=== PATIENT | female | born 1955 | race Caucasian/White ===

== ENCOUNTER 2016-09-16 15:17 | Observation (INO) | payer BC ==
[~2016-09-16] VITALS: Ht 162.6 cm; Wt 102.9 kg
[2016-09-16] MEDS ORDERED: NF454 PO (15:45)
[2016-09-16] MEDS ORDERED: CLB/200 PO (15:45)
[2016-09-16] MEDS ORDERED: HYDR12.55 PO (15:45)
[2016-09-16] MEDS ORDERED: INSDGI SC (15:45)
[2016-09-16] MEDS ORDERED: EZET10TA63 PO (15:45)
[2016-09-16] MEDS ORDERED: SIMV40TA2 PO (15:45)
[2016-09-16] MEDS ORDERED: LEVO25TA5 PO (15:45)
[2016-09-16] MEDS ORDERED: RABE20TA5 PO (15:45)
[2016-09-16] MEDS ORDERED: PANT40TA PO (15:45)
[2016-09-16] MEDS ORDERED: GLIP2.5T5 PO (15:45)
[2016-09-16] MEDS ORDERED: DICY10CA55 PO (15:45)
[2016-09-16] MEDS ORDERED: VNTHFA/IN INH (15:45)
[2016-09-16] MEDS ORDERED: FLUO20CA34 PO (15:45)
[2016-09-16] MEDS ORDERED: SODIUM CHLORIDE 0.9% 1000ML 1,000 ML IV STA (16:04)
[2016-09-16 16:40] LABS: BASO % 0.1 %; BASO ABS # 0.01 K/uL (0-0.2); COMPLETE YES; EOS % 1.1 %; HEMATOCRIT 35.6 % (37-47); IG% 0.3 %; LYMPH % 24.6 %; LYMPH ABS # 1.84 K/uL (1.2-3.4); MEAN CORPUSCULAR HEMOGLOBIN 27.2 pg (25-34); MEAN CORPUSCULAR HGB CONC 33.1 g/dl (32-36); MEAN PLATELET VOLUME 8.4 fL (7.4-10.4); MONO % 4.3 %; NEUT % 69.6 %; PLATELET COUNT 293 K/uL (130-400); RED BLOOD COUNT 4.34 M/uL (4.2-5.4); WHITE BLOOD COUNT 7.48 K/uL (4.8-10.8)
[2016-09-16 16:51] LABS: PARTIAL THROMBOPLASTIN RATIO 1.1
[2016-09-16 16:56] LABS: ALT/SGPT 43 U/L (12-78); AST/SGOT 21 U/L (15-37); BLOOD UREA NITROGEN 14 mg/dl (7-18); BUN/CREATININE RATIO 17.6 (10-20); CALCIUM 8.6 mg/dl (8.5-10.1); CARBON DIOXIDE 28 mmol/L (21-32); CHLORIDE 102 mmol/L (98-107); CREATININE 0.78 mg/dl (0.60-1.20); GLUCOSE 120 mg/dl (70-99); MAGNESIUM 1.8 mg/dl (1.8-2.4); POTASSIUM 3.1 mmol/L (3.5-5.1); SODIUM 140 mmol/L (136-145)
--- NOTE | 2016-09-16 17:02 | DIAGNOSTIC IMAGING REPORT ---
SINGLE VIEW CHEST CLINICAL HISTORY: Generalized weakness. Dyspnea and dizziness. FINDINGS: An AP, portable, upright chest radiograph is obtained. No prior studies are available for comparison at the time of dictation. The examination is degraded by portable technique, apical lordotic positioning, and patient rotation. The cardiomediastinal silhouette is unremarkable. Nonspecific interstitial thickening is identified. No airspace consolidation, large pleural effusion, or pneumothorax is seen. The skeletal structures are osteopenic. The bony thorax is grossly intact. Degenerative change is noted throughout the thoracic spine. IMPRESSION: No acute cardiopulmonary abnormality. Electronically signed by: Dewey Harris M.D. 09/16/2016 5:00 PM Dictated Date/Time: 09/16/2016 5:00 PM
[2016-09-16 17:07] LABS: ALKALINE PHOSPHATASE 97 U/L (45-117); CKMB/CK RATIO 1.3 (0-3.0)
[2016-09-16 17:46] LABS: URINE APPEARANCE CLOUDY (CLEAR); URINE BILIRUBIN NEG (NEG); URINE COLOR YELLOW; URINE EPITHELIAL CELL AUTO 20-30 /lpf (0-5); URINE NITRITE NEG (NEG); URINE PH 5.5 (4.5-7.5); URINE SPECIFIC GRAVITY 1.009 (1.000-1.030); UROBILINOGEN NEG (NEG)
[2016-09-16 17:54] LABS: MANUAL MICROSCOPIC REQUIRED? NO; REVIEW REQ? NO
[2016-09-16] MEDS ORDERED: MoRPHine SULFATE 2 MG/ML CARP IV PRN (18:45)
[2016-09-16] MEDS ORDERED: ACETAMINOPHEN 325 MG TAB PO PRN (18:45)
[2016-09-16] MEDS ORDERED: ONDANSETRON INJ 2 MG/ML 2 ML VIAL IV PRN (18:45)
[2016-09-16] MEDS ORDERED: NITROGLYCERIN 0.4 MG SL PER TAB CHARGE SL PRN (18:45)
[2016-09-16] MEDS ORDERED: POLYETHYLENE (MIRALAX) 17 GM PACK PO PRN (18:45)
[2016-09-16] MEDS ORDERED: CELE100C PO (18:52)
[2016-09-16] MEDS ORDERED: GLUCOSE 10 TABS/TUBE PO PRN (19:00)
[2016-09-16] MEDS ORDERED: DEXTROSE 50% 50 ML SYR IV PRN (19:00)
[2016-09-16] MEDS ORDERED: GLUCOSE 40% GEL 15 GM TUBE PO PRN (19:00)
[2016-09-16] MEDS ORDERED: ALBUTEROL HFA 8 GM INHALER INH PRN (19:00)
[2016-09-16] MEDS ORDERED: GLUCAGON FOR INJ 1 MG VIAL SQ PRN (19:00)
[2016-09-16] MEDS ORDERED: PHARMACY GLYCEMIC MGMT CONSULT SCH (19:11)
--- NOTE | 2016-09-16 19:12 | History and Physical ---
History & Physical Date & Time of Service: Sep 16, 2016 at 18:55 Chief Complaint: Sob, Dizziness, Referred From [facility] Primary Care Physician: No Doctor, Assigned History of Present Illness Source: patient, family, hospital records 61 yo F with h/o breast cancer s/p XRT in 2009 (no chemo) who is a lifelong smoker and who has a h/o nonobstructive heart disease on prior cath several years ago presents with 6 months of progressive worsening of her shortness of breath. She reports recently having been treated for CAP with a Zpak and some symptom control therapy such as Mucinex which helped, but states although she felt somewhat better, she did not feel as though she full recovered. She did go back to be seen and had a CXR that showed an improving PNA, no additional treatment was rendered at that time, and she improved. However, in the last few days her SOB has been worsening. She went to walk a 5K this morning with her family, which is something she usually has no issue with and couldn't make it to the starting line. She is noticeably very short of breath walking up her steps at home, moreso than usual. She denies cough, fevers, chills. She is a well-controlled diabetic who is on long-term insulin. She does report having active chest pain episodes that began about 2 months ago. They seemed to be provoked by stressors that she was going through at the time, not provoked by exercise. No palliative factors, but states the pain felt "like someone wiggling their fingers inside her chest" and would last for an hour at a time a few times a day. She also said that during her CP which did not radiate and was substernal, she would have nausea, lightheadedness, nausea, and tingling sensation in her fingers. After the treatment for PNA three weeks ago, those chest pains have not returned. She otherwise denies any ROS. She does also have PASCUAL and reports compliance with CPAP. No swelling or weight gain and she is euvolemic on exam. Past Medical/Surgical History Medical Problems: (1) Diabetes mellitus Status: Chronic (2) GERD (gastroesophageal reflux disease) Status: Chronic (3) HX: breast cancer Status: Resolved (4) Hypertension Status: Chronic Surgical Problems: (1) History of carpal tunnel surgery of left wrist Status: Chronic (2) History of hysterectomy Status: Resolved (3) History of right knee surgery Status: Chronic (4) Hx of cholecystectomy Status: Resolved (5) S/P SACHI-BSO Status: Chronic (6) Status post left breast lumpectomy Status: Chronic Family History Cancer Diabetes mellitus Heart disease Hypertension Kidney disease Kidney stones Social History Smoking Status: Never Smoker Smokeless Tobacco Use: No Alcohol Use: socially Drug Use: none Marital Status: Housing status: lives with significant other Occupational Status: employed Immunizations History of Influenza Vaccine: Unknown History of Tetanus Vaccine?: Unknown History of Pneumococcal: Unknown History of Hepatitis B Vaccine: Unknown Multi-Drug Resistant Organisms History of MDRO: No Allergies Coded Allergies: Indomethacin (Verified Adverse Reaction, Intermediate, "MAKES ME HIGH", 09/16/16) I FEEL LIKE I'M LEVITATING OFF THE COUCH. Aspirin (Verified Adverse Reaction, Unknown, STOMACH UPSET/SENSITIVITY, 09/16/16) Penicillins (Verified Adverse Reaction, Unknown, STOMACH UPSET/SENSITIVITY , 09/16/16) Home Medications Scheduled Celecoxib (Celebrex), 100 MG PO DAILY Dicyclomine Hcl (Bentyl), 5 MG PO BID Ezetimibe (Zetia), 10 MG PO DAILY Fluoxetine Hcl (Prozac), 60 MG PO DAILY Glipizide-Metformin Hcl (Glipizide/Metformin Hcl), 1 TAB PO BID Hydrochlorothiazide (Hydrochlorothiazide), 1 TAB PO DAILY Insulin Glargine (Lantus), 45 UNITS SC HS Levothyroxine Sodium (Levothyroxine Sodium), 1 TAB PO DAILY Pantoprazole (Protonix), 40 MG PO DAILY Simvastatin (Zocor), 40 MG PO QPM Verapamil Hcl (Calan Sr Ext Rel), 240 MG PO BID Scheduled PRN Albuterol Hfa (Ventolin Hfa), 2 PUFFS INH UD PRN for SOB/Wheezing Review of Systems Ten systems were reviewed and negative except as indicated in HPI. Physical Exam Vital Signs Date Time Temp Pulse Resp B/P (MAP) Pulse Ox O2 Delivery O2 Flow Rate FiO2 09/16/16 16:38 79 09/16/16 16:17 98 Room Air 09/16/16 16:17 98 Room Air 09/16/16 15:34 Room Air 09/16/16 15:23 36.8 85 18 184/94 95 Room Air GEN: obese, in no acute distress, alert and appropriate, no conversational dyspnea off oxygen. HEENT: NC/AT, PERRL, normal sclerae/conjunctivae, pharynx non-acute, MMM, no LAD CARDIO: reg rate, S1/2 heard without m/g/r, no chest wall TTP appreciated. LUNGS: CTA bilaterally, no crackles, rales or wheezes, good diaphragmatic excursion ABD: soft, non-tender, non-distended, no rebound or guarding, +BS EXTREMITY: RP and DP palpable 2+ bilat, no LE swelling or edema, extremities are warm and well-perfused NEURO: CN 2-12 grossly intact, mentating normally MUSC: 5/5 strength throughout, no focal deficits SKIN: warm and dry Diagnostics Laboratory Results Results Past 24 Hours Test 09/16/16 16:25 09/16/16 16:33 09/16/16 17:30 Range/Units White Blood Count 7.48 4.8-10.8 K/uL Red Blood Count 4.34 4.2-5.4 M/uL Hemoglobin 11.8 12.0-16.0 g/dL Hematocrit 35.6 37-47 % Mean Corpuscular Volume 82.0 80-100 fL Mean Corpuscular Hemoglobin 27.2 25-34 pg Mean Corpuscular Hemoglobin Concent 33.1 32-36 g/dl Platelet Count 293 130-400 K/uL Mean Platelet Volume 8.4 7.4-10.4 fL Neutrophils (%) (Auto) 69.6 % Lymphocytes (%) (Auto) 24.6 % Monocytes (%) (Auto) 4.3 % Eosinophils (%) (Auto) 1.1 % Basophils (%) (Auto) 0.1 % Neutrophils # (Auto) 5.21 1.4-6.5 K/uL Lymphocytes # (Auto) 1.84 1.2-3.4 K/uL Monocytes # (Auto) 0.32 0.11-0.59 K/uL Eosinophils # (Auto) 0.08 0-0.5 K/uL Basophils # (Auto) 0.01 0-0.2 K/uL RDW Standard Deviation 43.0 36.4-46.3 fL RDW Coefficient of Variation 14.4 11.5-14.5 % Immature Granulocyte % (Auto) 0.3 % Immature Granulocyte # (Auto) 0.02 0.00-0.02 K/uL Prothrombin Time 11.0 9.0-12.0 SECONDS Prothromb Time International Ratio 1.0 0.9-1.1 Activated Partial Thromboplast Time 27.5 21.0-31.0 SECONDS Partial Thromboplastin Ratio 1.1 Sodium Level 140 136-145 mmol/L Potassium Level 3.1 3.5-5.1 mmol/L Chloride Level 102 98-107 mmol/L Carbon Dioxide Level 28 21-32 mmol/L Anion Gap 10.0 3-11 mmol/L Blood Urea Nitrogen 14 7-18 mg/dl Creatinine 0.78 0.60-1.20 mg/dl Est Creatinine Clear Calc Drug Dose 86.8 ml/min Estimated GFR () 93.8 Estimated GFR (Non- 80.9 BUN/Creatinine Ratio 17.6 10-20 Random Glucose 120 70-99 mg/dl Calcium Level 8.6 8.5-10.1 mg/dl Magnesium Level 1.8 1.8-2.4 mg/dl Total Bilirubin 0.3 0.2-1 mg/dl Direct Bilirubin 0.1 0-0.2 mg/dl Aspartate Amino Transf (AST/SGOT) 21 15-37 U/L Alanine Aminotransferase (ALT/SGPT) 43 12-78 U/L Alkaline Phosphatase 97 45-117 U/L Total Creatine Kinase 92 26-192 U/L Creatine Kinase MB 1.2 0.5-3.6 ng/ml Creatine Kinase MB Ratio 1.3 0-3.0 Troponin I < 0.015 0-0.045 ng/ml Pro-B-Type Natriuretic Peptide 31 0-900 pg/ml Total Protein 6.6 6.4-8.2 gm/dl Albumin 3.5 3.4-5.0 gm/dl Thyroid Stimulating Hormone (TSH) 1.360 0.300-4.500 uIu/ml Bedside D-Dimer 374 0-450 ng/mlFEU Urine Color YELLOW Urine Appearance CLOUDY CLEAR Urine pH 5.5 4.5-7.5 Urine Specific [place] 1.009 1.000-1.030 Urine Protein NEG NEG Urine Glucose (UA) NEG NEG Urine Ketones NEG NEG Urine Occult Blood NEG NEG Urine Nitrite NEG NEG Urine Bilirubin NEG NEG Urine Urobilinogen NEG NEG Urine Leukocyte Esterase LARGE NEG Urine WBC (Auto) >30 0-5 /hpf Urine RBC (Auto) 0-4 0-4 /hpf Urine Hyaline Casts (Auto) 1-5 0-5 /lpf Urine Epithelial Cells (Auto) 20-30 0-5 /lpf Urine Bacteria (Auto) NEG NEG Diagnostic Radiology SINGLE VIEW CHEST CLINICAL HISTORY: Generalized weakness. Dyspnea and dizziness. FINDINGS: An AP, portable, upright chest radiograph is obtained. No prior studies are available for comparison at the time of dictation. The examination is degraded by portable technique, apical lordotic positioning, and patient rotation. The cardiomediastinal silhouette is unremarkable. Nonspecific interstitial thickening is identified. No airspace consolidation, large pleural effusion, or pneumothorax is seen. The skeletal structures are osteopenic. The bony thorax is grossly intact. Degenerative change is noted throughout the thoracic spine. IMPRESSION: No acute cardiopulmonary abnormality. EKG SR 79 with TWI V1-3 Impression Assessment and Plan 61 yo diabetic female with worsening RIGGS that became more severe and limiting in the last couple of days. 1. RIGGS- etiologies include but not limited to CAD/ACS, constrictive pericarditis or radiation pneumonitis after XRT therapy, pericardial effusion, deconditioning, pulmonary disease, impaired oxygen transport-toxins?, pulmonary HTN as a sequelae of PASCUAL, structural heart disease. Her CXR was clear, EKG revealed TWI in anterior leads, which was different from a prior EKG, and trop was negative. D-dimer was also negative. Will rule out ACS, give statin and ASA was already given today at outpatient facility. Will not anticoagulate as TRS is <3. Will monitor on telemetry and consult cardiology. TTE in am. If workup is negative at that point, would consider HRCT or pulm consult. Cont CPAP while hospitalized. 2. PASCUAL-compliant with CPAP 3. HTN-controlled, cont current therapy. 4. Obesity 5. Depression-stable, cont Prozac 6. DMII-reported low Y3E-snff check in am. ISS with carb coverage and Lantus ordered in hospital; glycemic pharm consult placed. 7. h/o breast cancer s/p XRT and lumpectomy; also took Tamoxifen or Arimidex but currently in remission. 8. 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 Y/N: Yes Risk Level: Moderate Given or contraindicated: Enoxaparin (Lovenox)SQ
[2016-09-16 19:48] VITALS: BP 137/54; PULSE 82; TEMP 37; O2SAT 96; Ht 162.6 cm; Wt 102.9 kg
--- NOTE | 2016-09-16 19:49 | EMERGENCY ROOM VISIT NOTE ---
History Report prepared by Jose: Suzy Lea Under the Supervision of: Dr. Dennis Hooper M.D. First contact with patient: 16:03 Chief Complaint: RESPIRATORY PROBLEMS Stated Complaint: SOB, DIZZINESS, REFERRED FROM [facility] Nursing Triage Summary: Patient reports having a recent diagnosis of pneumonia. Patient went to [facility] this date for re-evaluation of her cough which is not associated with exertional SOB. Patient given duoneb? with some relief and EKG completed. Provider at [facility] concerned over EKG changes. Patient denies any chest pain, fever, chills, productive cough, or syncope. History of Present Illness The patient is a 61 year old female who presents to the Emergency Room with complaints of constant respiratory problems for the past 3 weeks. She was recently diagnosed with pneumonia. She saw her PCP for this and took antibiotics. She states that she is still experiencing some symptoms. She gets short of breath with exertion and states that she was short of breath just walking short distances this morning. The patient notes that when she gets short of breath she also becomes nauseated and "clammy." She was feeling dizzy and lightheaded today. She was supposed to walk a 4K today, but was unable to due to her symptoms. She went to [facility] and had an ECG. The PA-C that evaluated her was concerned about a prolonged QT and sent the patient to the ED for further evaluation. While at [facility] she received a DuoNeb treatment that helped alleviate her symptoms for a short time. They also get her 6 baby aspirin. The patient reports chest pain about a month ago that she was never evaluated for. She thought that her chest pain was related to anxiety and states that her pain has resolved. She also notes intermittent pains in the backs of her legs bilaterally over the last 3 weeks. She took a trip to [place] last week, but denies any other recent prolonged travel. Pt denies LOC , headache, fevers, chills, diaphoresis, visual changes, neck pain, tearing pain radiating to the back, personal history or family history of aneurysm or pulmonary embolism, uncontrolled hypertension, leg swelling, coagulation abnormalities, recent surgery or immobilization, vomiting, abdominal pain, melena, hematochezia, urinary symptoms, numbness, weakness, lymphadenopathy, rash, or other complaints. Source of History: patient Onset: 3 weeks ago Position: chest (respiratory) Timing: constant Modifying Factors (Worsening): exertion Modifying Factors (Relieving): other (DuoNeb) Associated Symptoms: + SOB, + nausea Note: Pt notes lightheadedness and dizziness. Review of Systems See HPI for pertinent positives and negatives. A total of ten systems were reviewed and were otherwise negative. Past Medical & Surgical Medical Problems: (1) Diabetes mellitus (2) Exertional dyspnea (3) GERD (gastroesophageal reflux disease) (4) HX: breast cancer (5) Hypertension (6) Shortness of breath Surgical Problems: (1) History of hysterectomy (2) Hx of cholecystectomy Family History Cancer Diabetes mellitus Heart disease Hypertension Kidney disease Kidney stones Social History Smoking Status: Never Smoker Smokeless Tobacco Use: No Alcohol Use: occasionally Occupation Status: employed Current/Historical Medications Scheduled Celecoxib (Celebrex), 100 MG PO DAILY Dicyclomine Hcl (Bentyl), 5 MG PO BID Ezetimibe (Zetia), 10 MG PO DAILY Fluoxetine Hcl (Prozac), 60 MG PO DAILY Glipizide-Metformin Hcl (Glipizide/Metformin Hcl), 1 TAB PO BID Hydrochlorothiazide (Hydrochlorothiazide), 1 TAB PO DAILY Insulin Glargine (Lantus), 45 UNITS SC HS Levothyroxine Sodium (Levothyroxine Sodium), 1 TAB PO DAILY Pantoprazole (Protonix), 40 MG PO DAILY Simvastatin (Zocor), 40 MG PO QPM Verapamil Hcl (Calan Sr Ext Rel), 240 MG PO BID Scheduled PRN Albuterol Hfa (Ventolin Hfa), 2 PUFFS INH UD PRN for SOB/Wheezing Allergies Coded Allergies: Indomethacin (Verified Adverse Reaction, Intermediate, "MAKES ME HIGH", 09/16/16) I FEEL LIKE I'M LEVITATING OFF THE COUCH. Aspirin (Verified Adverse Reaction, Unknown, STOMACH UPSET/SENSITIVITY, 09/16/16) Penicillins (Verified Adverse Reaction, Unknown, STOMACH UPSET/SENSITIVITY , 09/16/16) Physical Exam Vital Signs Date Time Temp Pulse Resp B/P (MAP) Pulse Ox O2 Delivery O2 Flow Rate FiO2 09/16/16 19:08 84 12 161/85 97 09/16/16 18:52 78 19 95 09/16/16 18:22 80 23 98 09/16/16 17:52 78 29 96 09/16/16 17:47 81 21 97 09/16/16 17:33 158/86 09/16/16 17:17 81 17 95 09/16/16 16:47 81 20 94 09/16/16 16:38 79 09/16/16 16:20 154/90 09/16/16 16:17 98 Room Air 09/16/16 16:17 98 Room Air 09/16/16 15:34 Room Air 09/16/16 15:23 36.8 85 18 184/94 95 Room Air Physical Exam GENERAL: Awake, alert, well-appearing, in no distress HENT: Normocephalic, atraumatic. Oropharynx unremarkable. EYES: Normal conjunctiva. Sclera non-icteric. NECK: Supple. No nuchal rigidity. FROM. No JVD. RESPIRATORY: Clear to auscultation. CARDIAC: Regular rate, normal rhythm. Extremities warm and well perfused. Pulses equal. ABDOMEN: Soft, non-distended. No tenderness to palpation. No rebound or guarding. No masses. RECTAL: Deferred. MUSCULOSKELETAL: Chest examination reveals no tenderness. The back is symmetrical on inspection without obvious abnormality. There is no CVA tenderness to palpation. No joint edema. LOWER EXTREMITIES: Calves are equal size bilaterally and non-tender. No edema. No discoloration. NEURO: Normal sensorium. No sensory or motor deficits noted. SKIN: No rash or jaundice noted. Medical Decision & Procedures ER Provider Diagnostic Interpretation: Radiology results as stated below per my review and radiologist interpretation: SINGLE VIEW CHEST CLINICAL HISTORY: Generalized weakness. Dyspnea and dizziness. FINDINGS: An AP, portable, upright chest radiograph is obtained. No prior studies are available for comparison at the time of dictation. The examination is degraded by portable technique, apical lordotic positioning, and patient rotation. The cardiomediastinal silhouette is unremarkable. Nonspecific interstitial thickening is identified. No airspace consolidation, large pleural effusion, or pneumothorax is seen. The skeletal structures are osteopenic. The bony thorax is grossly intact. Degenerative change is noted throughout the thoracic spine. IMPRESSION: No acute cardiopulmonary abnormality. Electronically signed by: Dewey Harris M.D. 09/16/2016 5:00 PM Dictated Date/Time: 09/16/2016 5:00 PM Laboratory Results 09/16/16 16:25 Red Blood Count 4.34, Mean Corpuscular Volume 82.0, Mean Corpuscular Hemoglobin 27.2, Mean Corpuscular Hemoglobin Concent 33.1, Mean Platelet Volume 8.4, Neutrophils (%) (Auto) 69.6, Lymphocytes (%) (Auto) 24.6, Monocytes (%) (Auto) 4.3, Eosinophils (%) (Auto) 1.1, Basophils (%) (Auto) 0.1, Neutrophils # (Auto) 5.21, Lymphocytes # (Auto) 1.84, Monocytes # (Auto) 0.32, Eosinophils # (Auto) 0.08, Basophils # (Auto) 0.01 09/16/16 16:25 Test 09/16/16 16:25 09/16/16 16:33 09/16/16 17:30 White Blood Count 7.48 K/uL (4.8-10.8) Red Blood Count 4.34 M/uL (4.2-5.4) Hemoglobin 11.8 g/dL (12.0-16.0) Hematocrit 35.6 % (37-47) Mean Corpuscular Volume 82.0 fL (80-100) Mean Corpuscular Hemoglobin 27.2 pg (25-34) Mean Corpuscular Hemoglobin Concent 33.1 g/dl (32-36) Platelet Count 293 K/uL (130-400) Mean Platelet Volume 8.4 fL (7.4-10.4) Neutrophils (%) (Auto) 69.6 % Lymphocytes (%) (Auto) 24.6 % Monocytes (%) (Auto) 4.3 % Eosinophils (%) (Auto) 1.1 % Basophils (%) (Auto) 0.1 % Neutrophils # (Auto) 5.21 K/uL (1.4-6.5) Lymphocytes # (Auto) 1.84 K/uL (1.2-3.4) Monocytes # (Auto) 0.32 K/uL (0.11-0.59) Eosinophils # (Auto) 0.08 K/uL (0-0.5) Basophils # (Auto) 0.01 K/uL (0-0.2) RDW Standard Deviation 43.0 fL (36.4-46.3) RDW Coefficient of Variation 14.4 % (11.5-14.5) Immature Granulocyte % (Auto) 0.3 % Immature Granulocyte # (Auto) 0.02 K/uL (0.00-0.02) Prothrombin Time 11.0 SECONDS (9.0-12.0) Prothromb Time International Ratio 1.0 (0.9-1.1) Activated Partial Thromboplast Time 27.5 SECONDS (21.0-31.0) Partial Thromboplastin Ratio 1.1 Anion Gap 10.0 mmol/L (3-11) Est Creatinine Clear Calc Drug Dose 86.8 ml/min Estimated GFR () 93.8 Estimated GFR (Non- 80.9 BUN/Creatinine Ratio 17.6 (10-20) Calcium Level 8.6 mg/dl (8.5-10.1) Magnesium Level 1.8 mg/dl (1.8-2.4) Total Bilirubin 0.3 mg/dl (0.2-1) Direct Bilirubin 0.1 mg/dl (0-0.2) Aspartate Amino Transf (AST/SGOT) 21 U/L (15-37) Alanine Aminotransferase (ALT/SGPT) 43 U/L (12-78) Alkaline Phosphatase 97 U/L (45-117) Total Creatine Kinase 92 U/L (26-192) Creatine Kinase MB 1.2 ng/ml (0.5-3.6) Creatine Kinase MB Ratio 1.3 (0-3.0) Troponin I < 0.015 ng/ml (0-0.045) Pro-B-Type Natriuretic Peptide 31 pg/ml (0-900) Total Protein 6.6 gm/dl (6.4-8.2) Albumin 3.5 gm/dl (3.4-5.0) Thyroid Stimulating Hormone (TSH) 1.360 uIu/ml (0.300-4.500) Bedside D-Dimer 374 ng/mlFEU (0-450) Urine Color YELLOW Urine Appearance CLOUDY (CLEAR) Urine pH 5.5 (4.5-7.5) Urine Specific [place] 1.009 (1.000-1.030) Urine Protein NEG (NEG) Urine Glucose (UA) NEG (NEG) Urine Ketones NEG (NEG) Urine Occult Blood NEG (NEG) Urine Nitrite NEG (NEG) Urine Bilirubin NEG (NEG) Urine Urobilinogen NEG (NEG) Urine Leukocyte Esterase LARGE (NEG) Urine WBC (Auto) >30 /hpf (0-5) Urine RBC (Auto) 0-4 /hpf (0-4) Urine Hyaline Casts (Auto) 1-5 /lpf (0-5) Urine Epithelial Cells (Auto) 20-30 /lpf (0-5) Urine Bacteria (Auto) NEG (NEG) Laboratory results reviewed by me. Medications Administered Medications (Trade) Dose Ordered Sig/Patricia Route Start Time Stop Time Status Last Admin Dose Admin Sodium Chloride 1,000 ml @ 125 mls/hr Q8H STAT IV 09/16/16 16:04 09/17/16 00:03 09/16/16 16:36 125 MLS/HR ECG Indication: SOB/dyspnea Rate (beats per minute): 79 Rhythm: normal sinus Findings: T-wave inversion (Anterior), prolonged QT, no ectopy Comparison ECG Date: 02/23/2010 Change: T-wave inversions and prolonged QT are new. ED Course 1603: The patient was evaluated in room A11B. A complete history and physical exam was performed. 1604: NSS 1000 ml @ 125 mls/hr IV 1720: I checked on the patient but she was using the bathroom. 1744: I reassessed the patient at this time. She is feeling better and resting comfortably. I discussed the results and treatment plan with the patient. I answered all pertaining questions that she had. She expressed understanding and verbalized agreement. 1753: I spoke with Dr. Fisher. We discussed the patient's results and treatment plan. The patient will be evaluated by the [facility] for further management. Medical Decision Medication Reconciliation: I attest that I have personally reviewed the patient' s current medication list Blood pressure screening: Patient was found to have an elevated blood pressure and was referred to their primary doctor for recheck and further treatment. Triage Nursing notes reviewed. The patient's presentation and history were concerning for RIGGS. The patient was evaluated. Her ECG showed a mildly prolonged QT interval but more concerning T wave inversions anteriorly. I attempted to get an old ECG from the last facility the patient visited. Imaging and blood work obtained. I obtained the patient's old records from [facility] in [place]. Eight years ago she had a cardiac catheterization that showed mild disease of the LAD and RCA. The circumflex and the left main were normal. EF was 60%. Chest x-ray was unremarkable. Her ECG today does show new T-wave inversions. Her prior cardiac catheterization did show mild disease in the LAD in that was 8 years ago. Her CBC, chemistry panel, LFTs, lipase and cardiac markers are negative today. Her d-dimer is negative. The patient ambulated to the bathroom and felt short of breath again but this resolved immediately with rest. Given her dyspnea on exertion and ECG changes additional evaluation and management will be necessary in the hospital. The patient was given aspirin prior to coming to the Emergency Room. The patient felt comfortable with this plan. Internal medicine was consulted and the patient was evaluated in the Emergency Room for further management. Consults Time Called: 1749 Consulting Physician: Dr. Fisher Returned Call: [phone] Fisher. We discussed the patient's results and treatment plan. The patient will be evaluated by the [facility] for further management. Impression Primary Impression: Dyspnea on exertion Additional Impression: Acute electrocardiogram changes Scribe Attestation The scribe's documentation has been prepared under my direction and personally reviewed by me in its entirety. I confirm that the note above accurately reflects all work, treatment, procedures, and medical decision making performed by me. Departure Information Dispostion Being Evaluated By Hospitalist Referrals No Doctor, Assigned (PCP) Patient Instructions My [facility] Problem Qualifiers
[2016-09-16] MEDS ORDERED: ATORVASTATIN 40 MG TAB PO ONE (19:53)
[2016-09-16] MEDS ORDERED: POTASSIUM CHLORIDE 20 MEQ TABCR PO STA (19:54)
[2016-09-16] MEDS: ENOXAPARIN 40 MG/0.4 ML SYR SC SCH (20:28)
[2016-09-16] MEDS: VERAPAMIL HCL 240 MG TABCR PO SCH (20:29)
[2016-09-16] MEDS: INSULIN ASPART 100 UNITS/ML 3 ML PEN SC SCH (21:00)
[2016-09-16] MEDS: INSULIN GLARGINE SOLOSTAR 100 UNITS/ML 3 ML PEN SC SCH (21:00)
[2016-09-16] MEDS ORDERED: IV FLUIDS COMPLETED PRN (22:15)
[2016-09-16 23:05] LABS: CKMB/CK RATIO 1.5 (0-3.0)
[2016-09-16 23:28] VITALS: BP 144/84; PULSE 76; TEMP 36.8; O2SAT 98
[2016-09-16 23:59] VITALS: O2SAT 98
[2016-09-17] VITALS (8 sets, daily range): BP systolic 106–168; BP diastolic 64–96; PULSE 65–82; TEMP 36.7–37.2; O2SAT 95–98
[2016-09-17 04:20] LABS: MEAN CELL VOLUME 82.7 fL (80-100); MEAN CORPUSCULAR HGB CONC 32.6 g/dl (32-36); MEAN PLATELET VOLUME 8.4 fL (7.4-10.4); PLATELET COUNT 263 K/uL (130-400); RED BLOOD COUNT 4.11 M/uL (4.2-5.4); WHITE BLOOD COUNT 6.16 K/uL (4.8-10.8)
[2016-09-17 04:41] LABS: BLOOD UREA NITROGEN 11 mg/dl (7-18); BUN/CREATININE RATIO 19.4 (10-20); CALCIUM 8.5 mg/dl (8.5-10.1); CARBON DIOXIDE 33 mmol/L (21-32); CHLORIDE 105 mmol/L (98-107); CREATININE 0.56 mg/dl (0.60-1.20); GLUCOSE 102 mg/dl (70-99); POTASSIUM 3.6 mmol/L (3.5-5.1); SODIUM 143 mmol/L (136-145)
[2016-09-17 04:55] LABS: CHOLESTEROL 112 mg/dl (0-200); CHOLESTEROL/HDL RATIO 2.4; CKMB/CK RATIO 1.4 (0-3.0); HDL CHOLESTEROL 47 mg/dl; LDL CHOLESTEROL CALCULATED 40 mg/dl; TRIGLYCERIDES 127 mg/dl (0-150); VERY LOW DENSITY LIPOPROT CALC 25 mg/dl
[2016-09-17] MEDS: LEVOTHYROXINE 25 MCG TAB PO SCH (05:59)
[2016-09-17] MEDS: INSULIN GLARGINE SOLOSTAR 100 UNITS/ML 3 ML PEN SC SCH ×2 (08:13→21:00)
[2016-09-17] MEDS: INSULIN ASPART 100 UNITS/ML 3 ML PEN SC SCH ×4 (08:13→21:00)
[2016-09-17] MEDS: VERAPAMIL HCL 240 MG TABCR PO SCH ×2 (08:14→21:31)
[2016-09-17] MEDS: PANTOprazole SOD 40 MG TAB PO SCH (08:14)
[2016-09-17] MEDS: FLUOXETINE HCL 20 MG CAP PO SCH (08:15)
[2016-09-17] MEDS: ATORVASTATIN 40 MG TAB PO SCH (08:15)
[2016-09-17] MEDS: ASPIRIN 81 MG ECTAB PO SCH (08:15)
[2016-09-17] MEDS ORDERED: HYDROCHLOROTHIAZIDE 25 MG TAB PO SCH (09:00)
[2016-09-17] MEDS ORDERED: PERFLUTREN LIPID MICROSPHERE (DEFINITY) IV ONE (09:26)
--- NOTE | 2016-09-17 11:08 | Pharmacy Progress Note ---
Glycemic Control Intl Consult Date of Service Sep 17, 2016. Scope Glycemic Pharmacist consulted by Dr Fisher on 09/16/16 for glycemic control and to write orders per [facility] inpatient glycemic control protocol Objective Weight (Kilograms): 103.300 Accuchecks BSG (last 24hrs): Test 09/16/16 16:25 09/16/16 20:05 09/17/16 04:08 09/17/16 06:18 Random Glucose 120 mg/dl (70-99) 102 mg/dl (70-99) Bedside Glucose 111 mg/dl (70-90) 157 mg/dl (70-90) Laboratory Data (last 24hrs) Test 09/16/16 16:25 09/17/16 04:08 Anion Gap 10.0 mmol/L 5.0 mmol/L BUN/Creatinine Ratio 17.6 19.4 Blood Urea Nitrogen 14 mg/dl 11 mg/dl Creatinine 0.78 mg/dl 0.56 mg/dl Potassium Level 3.1 mmol/L 3.6 mmol/L Sodium Level 140 mmol/L 143 mmol/L White Blood Count 7.48 K/uL 6.16 K/uL Red Blood Count 4.34 M/uL Hemoglobin 11.8 g/dL Hematocrit 35.6 % Mean Corpuscular Volume 82.0 fL Mean Corpuscular Hemoglobin 27.2 pg Mean Corpuscular Hemoglobin Concent 33.1 g/dl Platelet Count 293 K/uL Mean Platelet Volume 8.4 fL Neutrophils (%) (Auto) 69.6 % Lymphocytes (%) (Auto) 24.6 % Monocytes (%) (Auto) 4.3 % Eosinophils (%) (Auto) 1.1 % Basophils (%) (Auto) 0.1 % Neutrophils # (Auto) 5.21 K/uL Lymphocytes # (Auto) 1.84 K/uL Monocytes # (Auto) 0.32 K/uL Eosinophils # (Auto) 0.08 K/uL Basophils # (Auto) 0.01 K/uL HbA1c Test 09/17/16 04:08 Recent Pertinent Medications Outpatient Anti-diabetic Regimen: * Lantus 45 units * Glipizide/Metformin 5/500 mg BIDM The patient is currently receiving: * Basal insulin: Lantus 10 units every 12 hours * Correctional Insulin: Novolog Correction per scale ACHS Goal Range: Low 100 mg/dL - High 140 mg/dL Correction Factor: 25 mg/dL/unit * Prandial insulin: Per carb ratio of 1 unit per 8 grams CHO consumed * Oral Agents: on hold Risk Factors for Insulin Resistance: * Diet Assessment & Plan ASSESSMENT: * 61 yo diabetic F admitted with SOB/dizziness, BSGs in the ED ~120 mg/dL * At home patient takes basal insulin only + oral agent, A1c pending for tomorrow with AM labs * Last night overnight pharmacist initiated a regimen based on total daily outpatient dose split 50/50 between basal/bolus * Fasting BSG 157 mg/dL this AM * At this point I do not have enough data to support a change to the regimen * Continue X 24 hours and titrate insulin per BSG trend * ADA & AACE recommend a goal blood sugar range 140-180 mg/dl for the majority of critically ill & non-critically ill patients. However, more stringent targets may be selected in individual cases. Goal tightened to 100-140 mg/dL per provider and I don't see a reason to change. Loosen if hypoglycemia occurs. PLAN FOR INPATIENT GLYCEMIC CONTROL: * Continue Lantus 10 units SQ BID * Continue correction factor 25 mg/dl/unit * Continue carb ratio 1 unit per 8 grams CHO consumed * Continue goal range Low 100 mg/dL - High 140 mg/dL * Please note that the plan above was derived based on current level of insulin resistance and hospital stress. These recommendations are appropriate for inpatient admission only. Plan of care upon discharge will need to be reassessed to avoid potential outpatient hypo/hyperglycemia. Thank you.
--- NOTE | 2016-09-17 11:37 | ECHOCARDIOGRAM REPORT ---
*NOTICE TO RECEIVING [employer] AGENCY This information is strictly Confidential and protected under [place] law. [place] law prohibits you from making any further disclosure of this information unless further disclosure is expressly permitted by the written consent of the person to whom it pertains or is authorized by law. A general authorization for the release of medical or other information is not sufficient for this purpose. Hospital accepts no responsibility if the information is made available to any other person, INCLUDING THE PATIENT. Interpretation Summary * Name: SPEEDY LUI Study Date: 09/17/2016 09:05 AM BP: 149/84 mmHg * Patient Location: C.2T\S\S244\S\1 HR: 73 * : 1955 (M/d/yyyy) Gender: Female Height: 64 in * Age: 61 yrs Ethnicity: [place] Weight: 229 lb * Ordering Physician: Sandi Fisher * Referring Physician: Self, Referred * Performed By: Jose Roberto Cabral RDCS * * Reason For Study: Significant worsening RIGGS x 6 months * BSA: 2.1 m2 * -- Conclusions -- * No regional wall motion abnormalities noted. * The LV Ejection Fraction = 60-65%. * Grade I diastolic dysfunction, (abnormal relaxation pattern). * The left atrium is mildly dilated. * The right ventricle is normal in size and function. Procedure Details * A complete two-dimensional transthoracic echocardiogram was performed (2D, M-mode, Doppler and color flow Doppler). * The study was technically difficult. * There were technical limitations due to patient'sbody habitus * The study was technically difficult, but visualization was adequate with the administration of Definity ultrasound contrast. * A contrast injection of Definity was performed to improve assessment of LV function. * Contrast was injected into an intravenous site in the right arm. * One vial of Definity ultrasound contrast was diluted in normal saline to a total volume of 10 ml. A total of '3' ml of solution was administered during imaging. * Lot # [id number] of Definity utilized for procedure. * Expiration date 1JUN. * The attending nurse who injected the contrast agent was AGUSTÍN Macias. * A saline contrast injection was performed to assess for cardiac shunting. * The injection was performed through an intravenous line in the right arm. * The attending nurse who injected the saline contrast was Qamar Holcomb RN. * A total of 20 cc of agitated saline was given. Left Ventricle * The left ventricle is normal in size. * There is normal left ventricular wall thickness. * Left ventricular systolic function is normal. * Ejection Fraction = 60-65%. * The left ventricular wall motion is normal. * No regional wall motion abnormalities noted. Right Ventricle * The right ventricle is normal in size and function. * The right ventricular systolic function is normal as assessed by tricuspid annular plane systolic excursion (TAPSE) (normal >1.5 cm). Atria * The left atrium is mildly dilated. * Right atrial size is normal. * There is no evidence of atrial septal defect, but resolution does not allow assessment for a patent foramen ovale. Mitral Valve * The mitral valve is normal. * There is no mitral valve stenosis. * Significant mitral regurgitation is absent. Tricuspid Valve * The tricuspid valve is normal. * There is no tricuspid stenosis. * Significant tricuspid regurgitation is absent. Aortic Valve * The aortic valve is trileaflet. * Aortic stenosis is absent. * There is no significant aortic regurgitation. Pulmonic Valve * The pulmonary valve is not well seen, but the Doppler examination is normal without significant regurgitation or stenosis. Great Vessels * The aortic root and proximal ascending aorta are normal sized. Pericardium/Pleural * There is no pericardial effusion. Great Vessels * Normal inferior vena cava diameter and respiratory variation suggests normal central venous pressure. * Normal inferior vena cava size and collapsability with sniff indicates a normal right atrial pressure of 3 mmHg Left Ventricular Diastolic Function * Grade I diastolic dysfunction, (abnormal relaxation pattern). MMode 2D Measurements and Calculations IVSd 1.1 cm IVSs 1.5 cm LVIDd 4.7 cm LVIDs 2.9 cm LVPWd 1.1 cm LVPWs 1.6 cm IVS/LVPW 1.0 FS 38.0 % EDV(Teich) 103.8 ml ESV(Teich) 33.1 ml EF(Teich) 68.1 % EDV(cubed) 105.7 ml ESV(cubed) 25.2 ml EF(cubed) 76.2 % % IVS thick 33.4 % % LVPW thick 45.0 % LV mass(C)d 186.3 grams LV mass(C)dI 89.9 grams/m\S\2 LV mass(C)s 155.5 grams LV mass(C)sI 75.1 grams/m\S\2 SV(Teich) 70.7 ml SI(Teich) 34.1 ml/m\S\2 SV(cubed) 80.5 ml SI(cubed) 38.9 ml/m\S\2 EPSS 0.45 cm Ao root diam 3.1 cm Ao root area 7.8 cm\S\2 ACS 2.0 cm LA dimension 4.6 cm asc Aorta Diam 3.2 cm LA/Ao 1.5 LVOT diam 2.0 cm LVOT area 3.2 cm\S\2 LVAd ap4 29.6 cm\S\2 LVLd ap4 7.7 cm EDV(MOD-sp4) 94.0 ml LVAs ap4 15.9 cm\S\2 LVLs ap4 6.4 cm ESV(MOD-sp4) 33.0 ml EF(MOD-sp4) 64.9 % LVAd ap2 27.7 cm\S\2 LVLd ap2 7.4 cm EDV(MOD-sp2) 85.0 ml LVAs ap2 16.4 cm\S\2 LVLs ap2 6.6 cm ESV(MOD-sp2) 34.0 ml EF(MOD-sp2) 60.0 % SV(MOD-sp4) 61.0 ml SI(MOD-sp4) 29.4 ml/m\S\2 SV(MOD-sp2) 51.0 ml SI(MOD-sp2) 24.6 ml/m\S\2 Doppler Measurements and Calculations MV E max karma 79.6 cm/sec MV A max karma 92.5 cm/sec MV E/A 0.86 MV dec time 0.19 sec Ao V2 max 152.0 cm/sec Ao max PG 9.2 mmHg Ao max PG (full) 4.0 mmHg KATHY(V,A) 2.4 cm\S\2 KATHY(V,D) 2.4 cm\S\2 LV V1 max PG 5.2 mmHg LV V1 max 114.5 cm/sec PA V2 max 121.2 cm/sec PA max PG 5.9 mmHg TR max karma 210.4 cm/sec
--- NOTE | 2016-09-17 11:55 | Progress Note ---
Internal Med Progress Note Date of Service: Sep 17, 2016. Provider Documentation: SUBJECTIVE: Patient does have exertional SOB. Gets SOB after taking few steps. No chest pain, cough, fever, chills, nausea, vomiting. OBJECTIVE: Vital Signs-as noted below Exam: General-AAOX3, no distress Neck-Supple, No JVD Lungs-AEBE, no wheezing, rhonchi, rales Heart-S1, S2 normal, no murmurs Extremities-No edema Lab data as noted below. ASSESSMENT & PLAN: 61 yo diabetic female with worsening RIGGS that became more severe and limiting in the last couple of days. Patient has been having progressively worsening SOB for last month or so. Was diagnosed with pneumonia 2 weeks ago, treated for it. CXR showed improving pneumonia, but SOB continued to worsen. Gets SOB even walking to the bathroom, which is a significant change from her baseline few months ago. [facility] near her daughter's home, EKG showed T wave inversions and thus came sent to ER. EXERTIONAL SOB : Progressively worsening x 1-2 months, in spite of treatment for pneumonia 2 weeks ago, CXR showing improvement. At urgent care on 09/16/16- EKG- T wave inversions- Leads V1-V3, Flattening V4-V6, thus referred to ER. -Continues to have Exertional SOB , No chest pain. -Risk factors: DM, Dyslipidemia, Obesity, Radiation rx for breast carcinoma -EKG= no change compared to yesterday EKG; Trop x 3- negative, CXR- no acute abnormalities -Continue with ASA, Atorvastatin -Echo pending--> awaiting results to decide about further intervention- stress test vs cardiac catheterization -Cardiology consulted. Discussed with Dr Garber. PASCUAL -Compliant with CPAP HTN- Controlled -Continue with home medications DM II- HBA1C pending -Hold home oral medications -ISS, Accuchecks DEPRESSION -Continue with prozac HX OF BREAST CARCINOMA S/P XRT and lumpectomy in past. 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 -stable -Continue with synthroid, Stable TSH DVT proph-Lovenox SQ FULL CODE DISPOSITION Continue with tele metry Vital Signs: Date Time Temp Pulse Resp B/P (MAP) Pulse Ox O2 Delivery O2 Flow Rate FiO2 09/17/16 08:00 Room Air 09/17/16 07:12 37.0 68 20 106/64 (78) 97 CPAP 09/17/16 04:00 96 CPAP 09/17/16 02:41 37.1 82 20 149/84 (105) 96 CPAP 09/16/16 23:59 98 CPAP 09/16/16 23:28 36.8 76 20 144/84 (104) 98 CPAP 09/16/16 22:19 21 09/16/16 19:48 37.0 82 18 137/54 96 Room Air 09/16/16 19:08 84 12 161/85 97 09/16/16 18:52 78 19 95 09/16/16 18:22 80 23 98 09/16/16 17:52 78 29 96 09/16/16 17:47 81 21 97 09/16/16 17:33 158/86 09/16/16 17:17 81 17 95 09/16/16 16:47 81 20 94 09/16/16 16:38 79 09/16/16 16:20 154/90 09/16/16 16:17 98 Room Air 09/16/16 16:17 98 Room Air 09/16/16 15:34 Room Air 09/16/16 15:23 36.8 85 18 184/94 95 Room Air Lab Results: Results Past 24 Hours Test 09/16/16 16:25 09/16/16 16:33 09/16/16 17:30 09/16/16 20:05 Range/Units White Blood Count 7.48 4.8-10.8 K/uL Red Blood Count 4.34 4.2-5.4 M/uL Hemoglobin 11.8 12.0-16.0 g/dL Hematocrit 35.6 37-47 % Mean Corpuscular Volume 82.0 80-100 fL Mean Corpuscular Hemoglobin 27.2 25-34 pg Mean Corpuscular Hemoglobin Concent 33.1 32-36 g/dl Platelet Count 293 130-400 K/uL Mean Platelet Volume 8.4 7.4-10.4 fL Neutrophils (%) (Auto) 69.6 % Lymphocytes (%) (Auto) 24.6 % Monocytes (%) (Auto) 4.3 % Eosinophils (%) (Auto) 1.1 % Basophils (%) (Auto) 0.1 % Neutrophils # (Auto) 5.21 1.4-6.5 K/uL Lymphocytes # (Auto) 1.84 1.2-3.4 K/uL Monocytes # (Auto) 0.32 0.11-0.59 K/uL Eosinophils # (Auto) 0.08 0-0.5 K/uL Basophils # (Auto) 0.01 0-0.2 K/uL RDW Standard Deviation 43.0 36.4-46.3 fL RDW Coefficient of Variation 14.4 11.5-14.5 % Immature Granulocyte % (Auto) 0.3 % Immature Granulocyte # (Auto) 0.02 0.00-0.02 K/uL Prothrombin Time 11.0 9.0-12.0 SECONDS Prothromb Time International Ratio 1.0 0.9-1.1 Activated Partial Thromboplast Time 27.5 21.0-31.0 SECONDS Partial Thromboplastin Ratio 1.1 Sodium Level 140 136-145 mmol/L Potassium Level 3.1 3.5-5.1 mmol/L Chloride Level 102 98-107 mmol/L Carbon Dioxide Level 28 21-32 mmol/L Anion Gap 10.0 3-11 mmol/L Blood Urea Nitrogen 14 7-18 mg/dl Creatinine 0.78 0.60-1.20 mg/dl Est Creatinine Clear Calc Drug Dose 86.8 ml/min Estimated GFR () 93.8 Estimated GFR (Non- 80.9 BUN/Creatinine Ratio 17.6 10-20 Random Glucose 120 70-99 mg/dl Calcium Level 8.6 8.5-10.1 mg/dl Magnesium Level 1.8 1.8-2.4 mg/dl Total Bilirubin 0.3 0.2-1 mg/dl Direct Bilirubin 0.1 0-0.2 mg/dl Aspartate Amino Transf (AST/SGOT) 21 15-37 U/L Alanine Aminotransferase (ALT/SGPT) 43 12-78 U/L Alkaline Phosphatase 97 45-117 U/L Total Creatine Kinase 92 26-192 U/L Creatine Kinase MB 1.2 0.5-3.6 ng/ml Creatine Kinase MB Ratio 1.3 0-3.0 Troponin I < 0.015 0-0.045 ng/ml Pro-B-Type Natriuretic Peptide 31 0-900 pg/ml Total Protein 6.6 6.4-8.2 gm/dl Albumin 3.5 3.4-5.0 gm/dl Thyroid Stimulating Hormone (TSH) 1.360 0.300-4.500 uIu/ml Bedside D-Dimer 374 0-450 ng/mlFEU Urine Color YELLOW Urine Appearance CLOUDY CLEAR Urine pH 5.5 4.5-7.5 Urine Specific [place] 1.009 1.000-1.030 Urine Protein NEG NEG Urine Glucose (UA) NEG NEG Urine Ketones NEG NEG Urine Occult Blood NEG NEG Urine Nitrite NEG NEG Urine Bilirubin NEG NEG Urine Urobilinogen NEG NEG Urine Leukocyte Esterase LARGE NEG Urine WBC (Auto) >30 0-5 /hpf Urine RBC (Auto) 0-4 0-4 /hpf Urine Hyaline Casts (Auto) 1-5 0-5 /lpf Urine Epithelial Cells (Auto) 20-30 0-5 /lpf Urine Bacteria (Auto) NEG NEG Bedside Glucose 111 70-90 mg/dl Test 09/16/16 22:37 09/17/16 04:08 09/17/16 06:18 Range/Units Total Creatine Kinase 93 85 26-192 U/L Creatine Kinase MB 1.4 1.2 0.5-3.6 ng/ml Creatine Kinase MB Ratio 1.5 1.4 0-3.0 Troponin I < 0.015 < 0.015 0-0.045 ng/ml White Blood Count 6.16 4.8-10.8 K/uL Red Blood Count 4.11 4.2-5.4 M/uL Hemoglobin 11.1 12.0-16.0 g/dL Hematocrit 34.0 37-47 % Mean Corpuscular Volume 82.7 80-100 fL Mean Corpuscular Hemoglobin 27.0 25-34 pg Mean Corpuscular Hemoglobin Concent 32.6 32-36 g/dl RDW Standard Deviation 44.2 36.4-46.3 fL RDW Coefficient of Variation 14.7 11.5-14.5 % Platelet Count 263 130-400 K/uL Mean Platelet Volume 8.4 7.4-10.4 fL Sodium Level 143 136-145 mmol/L Potassium Level 3.6 3.5-5.1 mmol/L Chloride Level 105 98-107 mmol/L Carbon Dioxide Level 33 21-32 mmol/L Anion Gap 5.0 3-11 mmol/L Blood Urea Nitrogen 11 7-18 mg/dl Creatinine 0.56 0.60-1.20 mg/dl Est Creatinine Clear Calc Drug Dose 121.0 ml/min Estimated GFR () 115.0 Estimated GFR (Non- 99.2 BUN/Creatinine Ratio 19.4 10-20 Random Glucose 102 70-99 mg/dl Calcium Level 8.5 8.5-10.1 mg/dl Triglycerides Level 127 0-150 mg/dl Cholesterol Level 112 0-200 mg/dl HDL Cholesterol 47 mg/dl LDL Cholesterol, Calculated 40 mg/dl VLDL Cholesterol, Calculated 25 mg/dl Cholesterol/HDL Ratio 2.4 Hepatitis C Antibody Screen NEG NEG Bedside Glucose 157 70-90 mg/dl
--- NOTE | 2016-09-17 12:32 | Cardiology Consultation ---
Cardiology Consultation Date of Consultation: Sep 17, 2016 History of Present Illness [place] is a 61 year old female seen in cardiology consultation per the request of Dr. Fisher for the evaluation of shortness of breath and abnormal EKG. The patient states that her recent medical history dates back to about 3 weeks ago when she had a cough. She had a chest x-ray reportedly performed by her primary care provider which was normal. Was noted that her blood pressure was elevated at the time of that examination and she was having a problem with tremors with activity. She was treated with a course of azithromycin for cough and shortness of breath but notes that her shortness of breath did not significantly improve. In retrospect she notes that she feels that she has been short of breath for the last few months perhaps 6 months and it has been progressive. Yesterday she was visiting her daughters and she went to watch a 5K run that her family was participating in. [place] the patient noted she was very short of breath with minimal exertion such as walking to the bathroom. She subsequently presented to the emergency department where her initial blood pressure was 184/94. She notes no greg chest discomfort just difficulty getting her breath with exertion. She felt well overnight. And her cardiac enzymes were negative on serial basis. EKG performed on arrival yesterday revealed sinus rhythm at 79 bpm with T-wave inversions noted in leads V1 to V3 which were new compared to a prior outside EKG dated 02/23/2010 when her T waves were upright in leads V2 and V3. Repeat EKG performed today 09/17/16 reveals continued mild nonspecific T- wave abnormality with T-wave inversions noted in leads V2 and V3. The patient notes that her mother had a history of "angina". The patient underwent an evaluation in [place] in December 2008 and the reports were obtained from medical record records. The patient describes that at that time she was having exertional shortness of breath and mild chest discomfort episodes. She underwent a cardiac catheterization dated 01/04/2009. The report describes a 15% stenosis in the proximal LAD and no other significant coronary stenosis. Systemic hypertension was noted and the hemodynamics reported includes a left ventricular pressure of 171/11, with a mean end-diastolic pressure of 15 millimeters of mercury. Heart catheterization summary describes moderate elevation the left ventricular diastolic filling pressures and mild mitral regurgitation on left ventriculogram. Risk factor modification was noted at that time and patient was to initiate statin therapy and DEBORAH inhibitor. 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 She recalls having been on verapamil since then. She notes no significant recent change in her medications with the exception of change in her Prozac dose. History Past Medical History: 1. Hypertension 2. Type 2 diabetes mellitus requiring insulin 3. Dyslipidemia 4. Obesity 5. Obstructive sleep apnea Breast carcinoma diagnosed in 2009 with treatment in 2010 including left-sided lumpectomy and radiation therapy. Patient completed a 5 year course of tamoxifen. She did not receive systemic chemotherapy. 6. Hypothyroidism with history of Saray's thyroiditis per her recollection 7. Gastroesophageal reflux disease Past Surgical History: 1. Left-sided breast lumpectomy 2. Cardiac catheterization 2008 Social History: The patient is . She lives with her . She is accompanied by her daughters Moan and Le who arein the hospital room with her. 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 She is a nonsmoker. Family History: Mother at age 45 due to metastatic breast carcinoma Father summer between the age of 52 and 62 he had a history of alcohol abuse and had throat and stomach cancer per her recollection She has a brother who has been treated for prostate carcinoma. She has a grandfather who had the diagnosis of coronary artery disease Review Of Systems See above for pertinent positives & negatives. A total of 10 systems reviewed and were otherwise negative. Allergies Coded Allergies: Fish (Verified Allergy, Unknown, GI SYMPTOMS, 09/16/16) Indomethacin (Verified Adverse Reaction, Intermediate, "MAKES ME HIGH", 09/16/16) I FEEL LIKE I'M LEVITATING OFF THE COUCH. Aspirin (Verified Adverse Reaction, Unknown, STOMACH UPSET/SENSITIVITY, 09/16/16) Penicillins (Verified Adverse Reaction, Unknown, STOMACH UPSET/SENSITIVITY , 09/16/16) Medications Reported Home Medications Medications Dose Route/Sig Max Daily Dose Days Date Category Dose Instructions Celebrex (Celecoxib) 100 Mg Cap 100 Mg PO DAILY 09/16/16 Reported Glipizide/Metformin Hcl (Glipizide-Metformin Hcl) 1 Tab Tab 1 Tab PO BID 09/16/16 Reported 500/5 Bentyl (Dicyclomine Hcl) 10 Mg Cap 5 Mg PO BID 09/16/16 Reported Zetia (Ezetimibe) 10 Mg Tab 10 Mg PO DAILY 09/16/16 Reported Calan Sr Ext Rel (Verapamil Hcl) 240 Mg Tab 240 Mg PO BID 09/16/16 Reported Levothyroxine Sodium 25 Mcg Tab 1 Tab PO DAILY 09/16/16 Reported Zocor (Simvastatin) 40 Mg Tab 40 Mg PO QPM 09/16/16 Reported Prozac (Fluoxetine Hcl) 20 Mg Cap 60 Mg PO DAILY 09/16/16 Reported Protonix (Pantoprazole) 40 Mg Tab 40 Mg PO DAILY 09/16/16 Reported Lantus (Insulin Glargine) 100 Unit/Ml Inj 45 Units SC HS 09/16/16 Reported Hydrochlorothiazide 12.5 Mg Tab 1 Tab PO DAILY 09/16/16 Reported Ventolin Hfa (Albuterol) 200 Puffs/47864 Mcg Aers 2 Puffs INH UD PRN 09/16/16 Reported Physical Exam Vital Signs (Last 8hrs): Last 8 Hrs Date Time Temp Pulse Resp B/P (MAP) Pulse Ox O2 Delivery O2 Flow Rate FiO2 09/17/16 12:09 36.7 72 19 168/95 (119) 96 Room Air 155/96 (115) 09/17/16 08:00 Room Air 09/17/16 07:12 37.0 68 20 106/64 (78) 97 CPAP General Appearance: Alert and Oriented x3. NAD. Head: Normocephalic Atraumatic. Eyes: PERRLA, EOMI, conjunctiva and sclera clear Neck: Supple. No carotid bruits noted. No JVD. No HJD. Respiratory: Breath sounds clear to auscultation bilaterally. No w/r/r. Cardiovascular: Reg rate and rhythm. S1 and S2 noted. No murmurs, rubs, gallops. PMI non displace. Abdomen: Normal bowel sounds, soft nontender. no abdominal bruits. Extremities: No edema, no clubbing or cyanosis. distal pulses 2/4 bilaterally. Neuro: No focal deficits. Psychiatric: Normal affect. Data Last Resulted 09/17/16 04:08 Last Resulted 09/17/16 04:08 Past 24 Hours Test 09/16/16 16:25 09/16/16 22:37 09/17/16 04:08 Range/Units Creatine Kinase MB 1.2 1.4 1.2 0.5-3.6 ng/ml Creatine Kinase MB Ratio 1.3 1.5 1.4 0-3.0 Prothromb Time International Ratio 1.0 0.9-1.1 Prothrombin Time 11.0 9.0-12.0 SECONDS Total Creatine Kinase 92 93 85 26-192 U/L Troponin I < 0.015 < 0.015 < 0.015 0-0.045 ng/ml D-dimer screen was negative at 374 ProBNP level was negative at 31 PG per mL. Cardiac enzymes were negative on a serial basis with troponin of less than 0.015 ng/mL 3 measurements. TSH was within normal limits at 1.36 high-grade international units per liter Cholesterol was well-controlled with total cholesterol of 112, checked this regimen 27, HDL 47, calculated LDL 40 mg/dL EKG as outlined in the history of present illness Chest x-ray performed on admission on 09/16/2016 revealed no acute cardiac pulmonary process Transthoracic echocardiogram performed today 09/17/2016 reviewed independently by the undersigned: No regional wall motion abnormality noted. The left ventricular myocardial thickness was normal. Left ventricular ejection fraction was normal at 60-65% Right ventricular size and systolic function was normal. Mild left atrial enlargement was noted. Grade 1 diastolic dysfunction was noted. No significant valvular heart disease was present. Assessment & Plan Impression: 61-year-old female 1. Progressive shortness of breath with minimal exertion 2. Abnormal EKG with nonspecific T-wave inversions noted in V2 and V3 new compared to 2009 3. Systemic hypertension, seemingly uncontrolled 4. Negative cardiac catheterization 2008, with moderate elevated left ventricular end-diastolic pressure at that time, systemic hypertension noted at that time procedure 5. Risk factors for ischemic heart disease including age, diabetes, hypertension, dyslipidemia, and chest radiation with history of radiation for breast carcinoma. Plan: Plan to proceed with dobutamine stress echocardiogram tomorrow. The patient is not able to walk sufficiently for an exercise stress test I think the dobutamine stress test will be a good modality for further risk stratification. Although her proBNP was normal, I have strong suspicion that perhaps she has some degree of shortness of breath due to diastolic dysfunction. She notes no history of ankle swelling however. She is on verapamil and Celebrex which can both cause fluid retention. Although several blood pressures performed early this morning were relatively low, for the most part her blood pressure trend reveals above goal blood pressure readings. Diastolic dysfunction be compatible with the invasive hemodynamic data obtained back in 2008 at the time for cardiac catheterization, and per her recollection and per the report shortness of breath with exertion was her chief complaint back then. After the stress test is completed, if there is no inducible ischemia, will alter her blood pressure medications including going up on her hydrochlorothiazide versus adding a diuretic. Plan I'm cutting back on her verapamil and adding losartan which would be useful in terms of protection purposes from a diabetic kidney disease standpoint. Continue current dose of his anemia and simvastatin. Further recommendations be forthcoming as her hospital stay develops. Elroy Garber D.O.
[2016-09-17] MEDS: ENOXAPARIN 40 MG/0.4 ML SYR SC SCH (21:33)
[2016-09-18] VITALS: O2SAT 98
[2016-09-18 03:01] VITALS: BP 122/72; PULSE 69; TEMP 36.9; O2SAT 95
[2016-09-18 04:00] VITALS: O2SAT 98
[2016-09-18] MEDS: LEVOTHYROXINE 25 MCG TAB PO SCH (06:00)
[2016-09-18 06:55] LABS: ESTIMATED AVERAGE GLUCOSE 143 mg/dl; HA1C FLAG Normal (Normal)
[2016-09-18 07:26] VITALS: BP 148/80; PULSE 65; TEMP 36.9; O2SAT 96
[2016-09-18 07:48] LABS: HEMATOCRIT 36.4 % (37-47); MEAN CELL VOLUME 82.7 fL (80-100); MEAN CORPUSCULAR HEMOGLOBIN 26.6 pg (25-34); MEAN CORPUSCULAR HGB CONC 32.1 g/dl (32-36); MEAN PLATELET VOLUME 8.4 fL (7.4-10.4); PLATELET COUNT 272 K/uL (130-400); WHITE BLOOD COUNT 6.09 K/uL (4.8-10.8)
[2016-09-18] MEDS: INSULIN ASPART 100 UNITS/ML 3 ML PEN SC SCH ×2 (08:05→12:33)
[2016-09-18] MEDS: ASPIRIN 81 MG ECTAB PO SCH (08:07)
[2016-09-18] MEDS: ATORVASTATIN 40 MG TAB PO SCH (08:07)
[2016-09-18] MEDS: PANTOprazole SOD 40 MG TAB PO SCH (08:07)
[2016-09-18] MEDS: VERAPAMIL HCL 240 MG TABCR PO SCH (08:07)
[2016-09-18] MEDS: FLUOXETINE HCL 20 MG CAP PO SCH (08:08)
[2016-09-18 08:17] LABS: BUN/CREATININE RATIO 18.2 (10-20); CREATININE 0.57 mg/dl (0.60-1.20); POTASSIUM 3.8 mmol/L (3.5-5.1)
[2016-09-18 08:23] LABS: CALCIUM 8.4 mg/dl (8.5-10.1)
[2016-09-18] MEDS ORDERED: HYDROCHLOROTHIAZIDE 25 MG TAB PO SCH (09:00)
[2016-09-18] MEDS ORDERED: METOPROLOL TARTRATE 1 MG/ML VIAL ONE (09:04)
[2016-09-18] MEDS ORDERED: ATROPINE SULFATE 0.1 MG/ML 5ML SYR ONE (09:04)
[2016-09-18] MEDS ORDERED: DOBUTamine HCL 12.5 MG/ML 20 ML VIAL ONE (09:04)
[2016-09-18] MEDS ORDERED: LOSARTAN POTASSIUM 25 MG TAB PO ONE (09:49)
--- NOTE | 2016-09-18 09:55 | Cardiology Follow-Up ---
Subjective General Date of Service: Sep 18, 2016. Chief Complaint: follow up shortness of breath Pt evaluation today including: conversation w/ patient, physical exam History of Present Illness The patient is a 61 year old female seen in cardiology follow up prior to/ during/ and post dobutamine stress echocardiogram. Patient denies shortness of breath overnight and notes feeling well. BPs remained above goal last night, with diastolic HTN , DBPs in the ~100 mm Hg range. Allergies Coded Allergies: Fish (Verified Allergy, Unknown, GI SYMPTOMS, 09/16/16) Indomethacin (Verified Adverse Reaction, Intermediate, "MAKES ME HIGH", 09/16/16) I FEEL LIKE I'M LEVITATING OFF THE COUCH. Aspirin (Verified Adverse Reaction, Unknown, STOMACH UPSET/SENSITIVITY, 09/16/16) Penicillins (Verified Adverse Reaction, Unknown, STOMACH UPSET/SENSITIVITY , 09/16/16) Social History Smoking Status: Never Smoker Hx Alcohol Use - Type And Amou: No Hx Substance Use - Type And Am: Yes (socially peach vodka) Problem List Medical Problems: (1) Acute electrocardiogram changes Status: Acute (2) Dyspnea on exertion Status: Acute Physical Exam Vital Signs Last Vital Signs Documentation Date Time Temp Pulse Resp B/P (MAP) Pulse Ox O2 Delivery O2 Flow Rate FiO2 09/18/16 08:00 Room Air 09/18/16 07:26 36.9 65 16 148/80 (102) 96 09/16/16 22:19 21 Physical Exam Constitutional: Level of Distress: NAD Neck: supple Lungs: Auscultation: no wheezing, no rales/crackles Cardiovascular: Heart Auscultation: RRR, no murmurs, no rubs, no gallops Assessment and Plan Assessment and Plan Resting and Dobutamine echocardiogram. Normal resting wall motion and normal resting LVEF Stress EKG and stress echo response was normal. No symptoms suggestive of angina were induced. Impression: 1. Exertional shortness of breath, given stress test results favor that T wave inversions in V2 and V3 are due to underlying hypertensive heart disease. 2. HTN, with BP above goal. Plan: Given stress test results, doubt ischemia is the cause of her symptoms. HCTZ increased for better BP control and diastolic dysfunction, and losartan added. Not clinically volume overloaded and BNP is normal. Laboratory Results Last 24 Hours Test 09/17/16 11:31 09/17/16 16:13 09/17/16 20:34 09/18/16 06:41 Bedside Glucose 129 mg/dl 73 mg/dl 145 mg/dl 122 mg/dl Test 09/18/16 07:40 White Blood Count 6.09 K/uL Red Blood Count 4.40 M/uL Hemoglobin 11.7 g/dL Hematocrit 36.4 % Mean Corpuscular Volume 82.7 fL Mean Corpuscular Hemoglobin 26.6 pg Mean Corpuscular Hemoglobin Concent 32.1 g/dl RDW Standard Deviation 44.4 fL RDW Coefficient of Variation 14.7 % Platelet Count 272 K/uL Mean Platelet Volume 8.4 fL Sodium Level 143 mmol/L Potassium Level 3.8 mmol/L Chloride Level 106 mmol/L Carbon Dioxide Level 28 mmol/L Anion Gap 9.0 mmol/L Blood Urea Nitrogen 10 mg/dl Creatinine 0.57 mg/dl Est Creatinine Clear Calc Drug Dose 118.0 ml/min Estimated GFR () 114.3 Estimated GFR (Non- 98.7 BUN/Creatinine Ratio 18.2 Random Glucose 124 mg/dl Calcium Level 8.4 mg/dl
--- NOTE | 2016-09-18 10:01 | Pharmacy Progress Note ---
Glycemic Control: Progress Nt Date of Service Sep 18, 2016. Scope Glycemic Pharmacist consulted for glycemic control and to write orders per [facility] inpatient glycemic control protocol. Objective Accuchecks BSG (last 24hrs): Test 09/17/16 11:31 09/17/16 16:13 09/17/16 20:34 09/18/16 06:41 Bedside Glucose 129 mg/dl (70-90) 73 mg/dl (70-90) 145 mg/dl (70-90) 122 mg/dl (70-90) Test 09/18/16 07:40 Random Glucose 124 mg/dl (70-99) Laboratory Data (last 24hrs) HbA1c: Test 09/17/16 04:08 Hemoglobin A1c 6.6 % (4.5-5.6) H Recent Pertinent Medications Outpatient Anti-diabetic Regimen: * Lantus 45 units * Glipizide/Metformin 5/500 mg BIDM The patient is currently receiving: * Basal insulin: Lantus 10 units every 12 hours * Correctional Insulin: Novolog Correction per scale ACHS Goal Range: Low 100 mg/dL - High 140 mg/dL Correction Factor: 25 mg/dL/unit * Prandial insulin: Per carb ratio of 1 unit per 8 grams CHO consumed * Oral Agents: on hold Assessment & Plan ASSESSMENT: * Patient is currently receiving an average of 41 units of insulin per day * 20 units of basal insulin * 21 units of prandial/correctional insulin * BSGs ranging 73 -157 over the past 24hrs * No changes needed to regimen at this time: * AM Fasting BSG = 122mg/dl --> no changes to basal insulin needed * Total daily dose = 41 regimen is distributed 50%:50% basal:prandial to prevent hypo/hyperglycemia with changes in PO intake * Post-prandial BSGs are in range. No changes needed to CF/CR PLAN FOR INPATIENT GLYCEMIC CONTROL: No changes needed at this time * Hold outpatient oral diabetes medications * Basal insulin: no changes * Continue Lantus 10 units SQ BID * Bolus insulin: No chnages * NovoLog per scale ACHS or Q6hrs while NPO * Goal Range: Low 100 mg/dL - High 140 mg/dL * Correction Factor: 25 mg/dL/unit * Nutritional / Prandial insulin per carb ratio of 1 unit per 8 grams CHO consumed RECOMMENDATIONS FOR DISCHARGE: * A1c = 6.6% on 09/17/16 * This is in goal range but may be slightly too aggressive based on co- morbidities; especially if patient is reporting lows as an outpatient * Pt is requiring less insulin in house as compared to outpatient regimen {41 units total daily dose vs Lantus 45units HS}. However, diet in house with controlled DMT2 as compared to outpatient setting. * Pt may require small dose decrease of Lantus insulin at discharge. * Please note that the plan above was derived based on current level of insulin resistance and hospital stress. These recommendations are appropriate for inpatient admission only. Plan of care upon discharge will need to be reassessed to avoid potential outpatient hypo/hyperglycemia. Thank you.
[2016-09-18] MEDS: INSULIN GLARGINE SOLOSTAR 100 UNITS/ML 3 ML PEN SC SCH (10:04)
[2016-09-18] MEDS ORDERED: OPTIRAY 320 IV PRN (11:30)
[2016-09-18 11:34] VITALS: BP 119/75; PULSE 69; TEMP 36.8; O2SAT 96
[2016-09-18] MEDS ORDERED: PERFLUTREN LIPID MICROSPHERE (DEFINITY) IV ONE (11:34)
--- NOTE | 2016-09-18 12:32 | Progress Note ---
Internal Med Progress Note Date of Service: Sep 18, 2016. Provider Documentation: SUBJECTIVE: Patient does have exertional SOB. Gets SOB after taking few steps. No chest pain, cough, fever, chills, nausea, vomiting. OBJECTIVE: Vital Signs-as noted below Exam: General-AAOX3, no distress Neck-Supple, No JVD Lungs-AEBE, no wheezing, rhonchi, rales Heart-S1, S2 normal, no murmurs Extremities-No edema Lab data as noted below. ASSESSMENT & PLAN: 61 yo diabetic female with worsening RIGGS that became more severe and limiting in the last couple of days. Patient has been having progressively worsening SOB for last month or so. Was diagnosed with pneumonia 2 weeks ago, treated for it. CXR showed improving pneumonia, but SOB continued to worsen. Gets SOB even walking to the bathroom, which is a significant change from her baseline few months ago. Went to [facility] urgent care near her daughter's home, EKG showed T wave inversions and thus came sent to ER. EXERTIONAL SOB : Progressively worsening x 1-2 months, in spite of treatment for pneumonia 2 weeks ago, CXR showing improvement. At urgent care on 09/16/16- EKG- T wave inversions- Leads V1-V3, Flattening V4-V6, thus referred to ER. -Continues to have Exertional SOB , No chest pain. -Cardiac risk factors: DM, Dyslipidemia, Obesity, Radiation rx for breast carcinoma -D/D : Cardiac, but stress echo normal and EKG changes likely related to hypertensive heart dz -Continue with ASA, Atorvastatin. HCTZ increased to 25 mg, losartan added -EKG= T wave inversion in Leads V1-V3, Flat V4-6; Trop x 3- negative, CXR- no acute abnormalities -Echo - EF 60-65%, No regional wall motion abnormalities, Gd I diastolic dysfunction -Cardiology consulted. Discussed with Dr Garber- changes made in BP medications- HCTZ increased, PLAN: Will do CT scan as cardiac work up negative to evaluate cause of progressive SOB. PASCUAL -Compliant with CPAP HTN- Controlled -Continue with home medications DM II- HBA1C pending -Hold home oral medications -ISS, Accuchecks DEPRESSION -Continue with prozac HX OF BREAST CARCINOMA S/P XRT and lumpectomy in past. 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 -stable -Continue with synthroid, Stable TSH DVT proph-Lovenox SQ FULL CODE DISPOSITION Continue with tele metry Okay to discharge today if CT scan is normal Vital Signs: Date Time Temp Pulse Resp B/P (MAP) Pulse Ox O2 Delivery O2 Flow Rate FiO2 09/18/16 11:34 36.8 69 16 119/75 (90) 96 09/18/16 08:00 Room Air 09/18/16 07:26 36.9 65 16 148/80 (102) 96 Room Air 09/18/16 04:00 98 CPAP 09/18/16 03:01 36.9 69 20 122/72 (89) 95 CPAP 09/18/16 00:00 98 CPAP 09/17/16 22:53 36.7 73 16 146/78 (100) 96 CPAP 09/17/16 20:00 98 CPAP 09/17/16 18:52 36.8 77 18 159/94 (115) 96 Room Air 09/17/16 16:00 Room Air 09/17/16 15:47 37.2 65 18 116/75 (89) 95 Room Air Lab Results: Results Past 24 Hours Test 09/17/16 16:13 09/17/16 20:34 09/18/16 06:41 09/18/16 07:40 Range/Units Bedside Glucose 73 145 122 70-90 mg/dl White Blood Count 6.09 4.8-10.8 K/uL Red Blood Count 4.40 4.2-5.4 M/uL Hemoglobin 11.7 12.0-16.0 g/dL Hematocrit 36.4 37-47 % Mean Corpuscular Volume 82.7 80-100 fL Mean Corpuscular Hemoglobin 26.6 25-34 pg Mean Corpuscular Hemoglobin Concent 32.1 32-36 g/dl RDW Standard Deviation 44.4 36.4-46.3 fL RDW Coefficient of Variation 14.7 11.5-14.5 % Platelet Count 272 130-400 K/uL Mean Platelet Volume 8.4 7.4-10.4 fL Sodium Level 143 136-145 mmol/L Potassium Level 3.8 3.5-5.1 mmol/L Chloride Level 106 98-107 mmol/L Carbon Dioxide Level 28 21-32 mmol/L Anion Gap 9.0 3-11 mmol/L Blood Urea Nitrogen 10 7-18 mg/dl Creatinine 0.57 0.60-1.20 mg/dl Est Creatinine Clear Calc Drug Dose 118.0 ml/min Estimated GFR () 114.3 Estimated GFR (Non- 98.7 BUN/Creatinine Ratio 18.2 10-20 Random Glucose 124 70-99 mg/dl Calcium Level 8.4 8.5-10.1 mg/dl
--- NOTE | 2016-09-18 12:32 | DOBUTAMINE ECHO ---
*NOTICE TO RECEIVING DEMOCRAT AGENCY This information is strictly Confidential and protected under [place] law. [place] law prohibits you from making any further disclosure of this information unless further disclosure is expressly permitted by the written consent of the person to whom it pertains or is authorized by law. A general authorization for the release of medical or other information is not sufficient for this purpose. Hospital accepts no responsibility if the information is made available to any other person, INCLUDING THE PATIENT. Interpretation Summary * Name: SPEEDY LUI Study Date: 09/18/2016 08:18 AM BP: 153/84 mmHg * Patient Location: .2T\S\S244\S\1 HR: 71 * : 1955 (M/d/yyyy) Gender: Female Height: 64 in * Age: 61 yrs Ethnicity: CA Weight: 227 lb * Ordering Physician: Elroy Garber * Referring Physician: RADHA * Performed By: Gena Engel RDCS * * Reason For Study: CHEST PAIN, SOB * BSA: 2.1 m2 * -- Conclusions -- * STRESS STUDY: * Normal pharmacologic stress echocardiogram. * No echocardiographic or ECG evidence of myocardial ischemia having achieved heart rate adequate for diagnostic purposes. * The heart rate response to pharmacoligic stress was normal. * The blood pressure response to pharmacologic stress was normal. * No symptoms suggestive of angina were induced. * Refer to the report dated 09/17/16 for complete resting study. Procedure Details * DOBUTAMINE ECHO, CPT#77930 * A contrast injection of Definity was performed to improve assessment of LV function. * Contrast was injected into an intravenous site in the right arm. * One vial of Definity ultrasound contrast was diluted in normal saline to a total volume of 10 ml. A total of '7.5' ml of solution was administered during imaging. * Lot # [id number] of Definity utilized for procedure. * Expiration date OCT 01. * The attending nurse who injected the contrast agent was NADEGE GOLDEN RN. Left Ventricle * The left ventricle is normal in size. There is normal left ventricular wall thickness. Left ventricular systolic function is normal at rest. The resting LV Ejection Fraction = 60-65%. * Resting wall motion: Normal. Stress wall motion: Appropriate increase in Left ventricular systolic function and decrease in cavity size. No stress induced segmental wall motion abnormalities. Stress Parameters * The baseline EKG revealed sinus rhythm with incomplete right bundle branch block morphology and T wave inversions in leads V2 and V3. * The stress EKG response was negative for ischemia. * The stress portion of this study was personally supervised by the undersigned interpreting physician. * Rest heart rate was '71' BPM. * Rest blood pressure was '153/84' * Maximum heart rate achieved was 146 bpm. * Maximum heart rate was 92 % of maximum age-predicted heart rate. * Maximum blood pressure was '190/81' * Maximum Dobutamine infusion rate was '40' mcg/kg/min. * A total of .25 mg of intravenous Atropine was used to supplement Dobutamine for heart rate response. * Dobutamine infusion was terminated due to achieving target heart rate * A total of 5 mg of IV Metoprolol was administered to reverse Dobutamine-induced tachycardia.
--- NOTE | 2016-09-18 14:03 | DIAGNOSTIC IMAGING REPORT ---
CT ANGIOGRAM OF THE CHEST CLINICAL HISTORY: Progressive exertional shortness of breath. COMPARISON STUDY: Chest x-ray dated 09/16/2016 TECHNIQUE: Following the IV administration of 93 mL of Optiray-320, CT angiogram of the thorax was performed from the thoracic inlet to the lung bases utilizing the pulmonary embolus protocol. Images are reviewed in the axial, sagittal, and coronal planes. IV contrast was administered without complication. MIP imaging was performed. CT DOSE: 647.47 mGy.cm FINDINGS: There are right paratracheal lymph nodes the upper limits of normal in size. There is no pathologic axillary or hilar lymphadenopathy. There was no evidence of thoracic aortic dilatation. There were no pulmonary artery filling defects to indicate acute pulmonary embolism. No pleural effusions are visualized. There is no lobar consolidation. There are subpleural fibrotic changes within the lingula. Well nonspecific, the appearance raises the possibility of prior radiation therapy. IMPRESSION: 1. No CT evidence of acute pulmonary embolism 2. Minor subpleural fibrotic changes within the lingula. 3. No evidence of pathologic adenopathy Electronically signed by: Miah Leary M.D. 09/18/2016 2:02 PM Dictated Date/Time: 09/18/2016 1:57 PM
[2016-09-18] MEDS ORDERED: HYDR25TA5 PO (14:09)
[2016-09-18] MEDS ORDERED: CZR25 PO (14:09)
--- NOTE | 2016-09-18 14:12 | Discharge Instructions ---
Discharge Instructions Date of Service Sep 18, 2016. Admission Reason for Admission: Exertional Dyspnea, Sob Discharge Discharge Diagnosis / Problem: 1. Exertional SOB, ruled out acute ischemia Discharge Goals Goal(s): Diagnostic testing, Therapeutic intervention Activity Recommendations Activity Limitations: resume your previous activity (as tolerated) . Instructions / Follow-Up Instructions / Follow-Up MEDICATION CHANGES 1. Increase HCTZ to 25 mg daily 2. New medication; Losartan 25 mg daily FOLLOW UP 1. Follow up with PCP in 1 week. 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, which could be secondary to radiation rx in past Current Hospital Diet Patient's current hospital diet: AHA Diet (Heart Healthy), Diabetes Type 2 Diet Discharge Diet Recommended Diet: AHA Diet (Heart Healthy), Low Sodium Diet (2gm Na) Pending Studies Studies pending at discharge: no Laboratory Results Hemoglobin A1c Test 09/17/16 04:08 Range/Units Estimated Average Glucose 143 mg/dl Hemoglobin A1c 6.6 H 4.5-5.6 % Lipid Panel Test 09/17/16 04:08 Range/Units Triglycerides Level 127 0-150 mg/dl Cholesterol Level 112 0-200 mg/dl HDL Cholesterol 47 mg/dl Cholesterol/HDL Ratio 2.4 LDL Cholesterol, Calculated 40 mg/dl Medical Emergencies . Who to Call and When: Medical Emergencies: If at any time you feel your situation is an emergency, please call 911 immediately. . Non-Emergent Contact Non-Emergency issues call your: Primary Care Provider . . "Provider Documentation" section prepared by Swetha Nunez. . VTE Core Measure Inpt VTE Proph given/why not?: Enoxaparin (Lovenox)SQ
--- NOTE | 2016-09-18 14:16 | Discharge Summary ---
Discharge Summary Date of Service Sep 18, 2016. Discharge Summary Admission Date: Sep 16, 2016 at 18:44 Discharge Date: Sep 18, 2016 Discharge Disposition: Home Principal Diagnosis: 1. Exertional SOB, acute ischemia ruled out Secondary Diagnoses/Problems: 1. HTN 2. DM-2 3. Hx of breast carcinoma 4. Hypothyroidism 5. Depression 6. Obesity 7. PASCUAL on CPAP Procedures: Tele monitoring Stress echocardiogram Serial EKG/Troponin CXR CT scan chest Consultations: Cardiology, Dr Garber Pending Studies/Follow-Up: Instructions / Follow-Up Instructions / Follow-Up MEDICATION CHANGES 1. Increase HCTZ to 25 mg daily 2. New medication; Losartan 25 mg daily FOLLOW UP 1. Follow up with PCP in 1 week. 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, which could be secondary to radiation rx in past Medication Reconciliation New Medications: Hydrochlorothiazide (Hydrochlorothiazide) 25 Mg Tab 25 MG PO DAILY for 30 Days, #30 TAB Losartan Potassium (Losartan Potassium) 25 Mg Tab 25 MG PO QAM for 30 Days, #30 TAB 2 Refills Continued Medications: Albuterol Hfa (Ventolin Hfa) 200 Puffs/19381 Mcg Aers 2 PUFFS INH UD PRN for SOB/Wheezing Celecoxib (Celebrex) 100 Mg Cap 100 MG PO DAILY, CAP Dicyclomine Hcl (Bentyl) 10 Mg Cap 5 MG PO BID Ezetimibe (Zetia) 10 Mg Tab 10 MG PO DAILY Fluoxetine Hcl (Prozac) 20 Mg Cap 60 MG PO DAILY Glipizide-Metformin Hcl (Glipizide/Metformin Hcl) 1 Tab Tab 1 TAB PO BID 500/5 Insulin Glargine (Lantus) 100 Unit/Ml Inj 45 UNITS SC HS Levothyroxine Sodium (Levothyroxine Sodium) 25 Mcg Tab 1 TAB PO DAILY Pantoprazole (Protonix) 40 Mg Tab 40 MG PO DAILY Simvastatin (Zocor) 40 Mg Tab 40 MG PO QPM Verapamil Hcl (Calan Sr Ext Rel) 240 Mg Tab 240 MG PO BID Discontinued Medications: Hydrochlorothiazide (Hydrochlorothiazide) 12.5 Mg Tab 1 TAB PO DAILY Admission Information HPI (per Admitting provider): 61 yo F with h/o breast cancer s/p XRT in 2009 (no chemo) who is a lifelong smoker and who has a h/o nonobstructive heart disease on prior cath several years ago presents with 6 months of progressive worsening of her shortness of breath. She reports recently having been treated for CAP with a Zpak and some symptom control therapy such as Mucinex which helped, but states although she felt somewhat better, she did not feel as though she full recovered. She did go back to be seen and had a CXR that showed an improving PNA, no additional treatment was rendered at that time, and she improved. However, in the last few days her SOB has been worsening. She went to walk a 5K this morning with her family, which is something she usually has no issue with and couldn't make it to the starting line. She is noticeably very short of breath walking up her steps at home, moreso than usual. She denies cough, fevers, chills. She is a well-controlled diabetic who is on long-term insulin. She does report having active chest pain episodes that began about 2 months ago. They seemed to be provoked by stressors that she was going through at the time, not provoked by exercise. No palliative factors, but states the pain felt "like someone wiggling their fingers inside her chest" and would last for an hour at a time a few times a day. She also said that during her CP which did not radiate and was substernal, she would have nausea, lightheadedness, nausea, and tingling sensation in her fingers. After the treatment for PNA three weeks ago, those chest pains have not returned. She otherwise denies any ROS. She does also have PASCUAL and reports compliance with CPAP. No swelling or weight gain and she is euvolemic on exam. Physical Exam (per Admitting): GEN: obese, in no acute distress, alert and appropriate, no conversational dyspnea off oxygen. HEENT: NC/AT, PERRL, normal sclerae/conjunctivae, pharynx non-acute, MMM, no LAD CARDIO: reg rate, S1/2 heard without m/g/r, no chest wall TTP appreciated. LUNGS: CTA bilaterally, no crackles, rales or wheezes, good diaphragmatic excursion ABD: soft, non-tender, non-distended, no rebound or guarding, +BS EXTREMITY: RP and DP palpable 2+ bilat, no LE swelling or edema, extremities are warm and well-perfused NEURO: CN 2-12 grossly intact, mentating normally MUSC: 5/5 strength throughout, no focal deficits SKIN: warm and dry Hospital Course 61 yo diabetic female with worsening RIGGS that became more severe and limiting in the last couple of days. Patient has been having progressively worsening SOB for last month or so. Was diagnosed with pneumonia 2 weeks ago, treated for it. CXR showed improving pneumonia, but SOB continued to worsen. Gets SOB even walking to the bathroom, which is a significant change from her baseline few months ago. Went to [facility] urgent care near her daughter's home, EKG showed T wave inversions and thus came sent to ER. EXERTIONAL SOB : Progressively worsening x 1-2 months, in spite of treatment for pneumonia 2 weeks ago, CXR showing improvement. At urgent care on 09/16/16- EKG- T wave inversions- Leads V1-V3, Flattening V4-V6, thus referred to ER. -Continues to have Exertional SOB , No chest pain. -Cardiac risk factors: DM, Dyslipidemia, Obesity, Radiation rx for breast carcinoma -D/D : Cardiac, but stress echo normal and EKG changes likely related to hypertensive heart dz -Continue with ASA, Atorvastatin. HCTZ increased to 25 mg, losartan added -EKG= T wave inversion in Leads V1-V3, Flat V4-6; Trop x 3- negative, CXR- no acute abnormalities -Echo - EF 60-65%, No regional wall motion abnormalities, Gd I diastolic dysfunction -Cardiology consulted. Discussed with Dr Garber- changes made in BP medications- HCTZ increased, ABNORMAL CT SCAN As cardiac work up came back negative as above, did CT scan for further evaluation of her progressive exertional SOB -Shows no PE, mild subpleural fibrotic changes within the lingula. No evidence of pathologic adenopathy -Monitor it outpatient PASCUAL -Compliant with CPAP HTN- Controlled -Continue with home medications DM II- HBA1C pending -Hold home oral medications -ISS, Accuchecks DEPRESSION -Continue with prozac HX OF BREAST CARCINOMA S/P XRT and lumpectomy in past. 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 Discharge Instructions Discharge Goals Goal(s): Diagnostic testing, Therapeutic intervention Activity Recommendations Activity Limitations: resume your previous activity (as tolerated) . Instructions / Follow-Up Instructions / Follow-Up MEDICATION CHANGES 1. Increase HCTZ to 25 mg daily 2. New medication; Losartan 25 mg daily FOLLOW UP 1. Follow up with PCP in 1 week. 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, which could be secondary to radiation rx in past Current Hospital Diet Patient's current hospital diet: AHA Diet (Heart Healthy), Diabetes Type 2 Diet Discharge Diet Recommended Diet: AHA Diet (Heart Healthy), Low Sodium Diet (2gm Na) Pending Studies Studies pending at discharge: no Laboratory Results Hemoglobin A1c Test 09/17/16 04:08 Range/Units Estimated Average Glucose 143 mg/dl Hemoglobin A1c 6.6 H 4.5-5.6 % Lipid Panel Test 09/17/16 04:08 Range/Units Triglycerides Level 127 0-150 mg/dl Cholesterol Level 112 0-200 mg/dl HDL Cholesterol 47 mg/dl Cholesterol/HDL Ratio 2.4 LDL Cholesterol, Calculated 40 mg/dl Medical Emergencies . Who to Call and When: Medical Emergencies: If at any time you feel your situation is an emergency, please call 911 immediately. . Non-Emergent Contact Non-Emergency issues call your: Primary Care Provider . . "Provider Documentation" section prepared by Swetha Nunez. . VTE Core Measure Inpt VTE Proph given/why not?: Enoxaparin (Lovenox)SQ
[2016-09-18 14:17] VITALS: BP 119/75; PULSE 69; TEMP 36.8; O2SAT 96
[2016-09-19] MEDS ORDERED: LOSARTAN POTASSIUM 25 MG TAB PO SCH (09:00)
== END 2016-09-18 14:47 | disposition home health service (06) ==
LOC: C.EDB 15:20 → C.2T 18:44 → ENRESERV 19:11
PROVIDERS: ADMIT Hospitalist; ATTEND Internal Medicine
DX: R06.09 Other forms of dyspnea (principal); I45.81 Long QT syndrome; Z87.01 Personal history of pneumonia (recurrent); E11.9 Type 2 diabetes mellitus without complications; K21.9 Gastro-esophageal reflux disease without esophagitis; Z85.3 Personal history of malignant neoplasm of breast; I10 Essential (primary) hypertension; Z90.710 Acquired absence of both cervix and uterus; Z90.49 Acquired absence of other specified parts of digestive tract; Z83.3 Family history of diabetes mellitus; Z82.49 Family history of ischemic heart disease and other diseases of the circulatory system; Z79.84 Long term (current) use of oral hypoglycemic drugs; G47.33 Obstructive sleep apnea (adult) (pediatric); Z90.722 Acquired absence of ovaries, bilateral; E66.9 Obesity, unspecified; F32.9 Major depressive disorder, single episode, unspecified; E03.9 Hypothyroidism, unspecified

== ENCOUNTER 2022-04-27 00:16 | Inpatient (IN) ==
[2022-04-27] MEDS ORDERED: ONDANSETRON INJ 2 MG/ML 2 ML VIAL IV STA (00:33)
[2022-04-27] MEDS ORDERED: MoRPHine SULFATE 2 MG/ML CARP IV PRN ×2 (00:33→08:59)
[2022-04-27] MEDS ORDERED: SODIUM CHLORIDE 0.9% 1000ML 1,000 ML IV SCH (00:45)
[2022-04-27 00:47] LABS: Basophils # (auto) 0.05 K/uL (0-0.2); Basophils % (auto) 0.5 %; Eosinophils # (auto) 0.15 K/uL (0-0.50); Eosinophils % (auto) 1.5 %; Hematocrit (blood only) 37.2 % (34.1-44.9); Immature Granulocytes # (auto) 0.04 K/uL (0.00-0.02); Immature Granulocytes % (auto) 0.4 %; Lymphocytes # (auto) 2.95 K/uL (1.2-3.4); Lymphocytes % (auto) 30.1 %; Mean Corpuscular Hemoglobin 27.9 pg (25.0-34.0); Mean Corpuscular Hgb Conc 34.9 g/dL (32.0-36.0); Mean Corpuscular Volume 79.8 fL (80.0-100.0); Mean Platelet Volume 8.6 fL (9.4-12.3); Monocytes # (auto) 0.56 K/uL (0.24-0.82); Monocytes % (auto) 5.7 %; Neutrophils # (auto) 6.04 K/uL (1.4-6.5); Neutrophils % (auto) 61.8 %; Platelet Count 443 K/uL (130-400); RDW Coefficient of Variation 14.6 % (11.5-14.5); RDW Standard Deviation 42.4 fL (36.4-46.3); Red Blood Count 4.66 M/uL (3.93-5.22); White Blood Count 9.79 K/ul (4.8-10.8)
[2022-04-27 01:09] LABS: Albumin Globulin Ratio 1.5 (0.9-2); Albumin Level 4.3 gm/dl (3.4-5.0); Bilirubin,Total 0.5 mg/dl (0.2-1.0); Calcium 9.5 mg/dl (8.5-10.1); Creatinine Clr Calc Pharmacy 104.1 ml/min; Est GFR (African American) 111.7 ml/min; Est GFR (Non-African American) 96.4 ml/min; Globulin 2.9 gm/dl (2.5-4.0); Magnesium 1.2 mg/dl (1.7-2.4); Potassium 3.4 mmol/L (3.5-5.1); Total Protein 7.2 gm/dl (6.0-8.3)
--- NOTE | 2022-04-27 01:11 | CT Scan Report ---
CT OF THE HEAD WITHOUT CONTRAST CLINICAL HISTORY: syncope, injury COMPARISON STUDY: No previous studies for comparison. TECHNIQUE: Helical axial images of the head were obtained without IV contrast. Automated exposure con trol was utilized for the study. A dose lowering technique was utilized adhering to the principles o f ALARA. FINDINGS: No acute intracranial hemorrhage, midline shift or mass effect is present. Bilateral basal ganglia calcification. White matter hypodensity suggests small vessel disease. The ventricular system is unremarkable. The basal cisterns are patent. No extra-axial collections are present. There are no findings to suggest acute dural sinus thrombosis or acute territorial infarct. No significant calvar ial abnormalities are present. Visualized portions of the sinuses and mastoid air cells are clear. IMPRESSION: 1. No acute intracranial findings. 2. No acute calvarial fracture. ACT 112: Negative or not required by law. Electronically signed by: Ravi Singletary M.D. 04/27/2022 1:10 AM
[2022-04-27 01:14] LABS: Troponin I High Sensitivity 4.5 pg/ml (0-14)
--- NOTE | 2022-04-27 01:16 | CT Scan Report ---
CT OF THE CERVICAL SPINE WITHOUT CONTRAST CLINICAL HISTORY: syncope, injury COMPARISON STUDY: No previous studies for comparison. TECHNIQUE: Helical axial images of the cervical spine were obtained without IV contrast. Sagittal a nd coronal reconstructions were viewed. Automated exposure control was utilized for the study. A do se lowering technique was utilized adhering to the principles of ALARA. FINDINGS: Slight anterolisthesis of C7 on T1 is likely due to facet arthrosis. Vertebral body heights are maintained. No acute cervical spine fracture or subluxation is present. There is no prevertebral edema. Facet joints are intact. Moderate multilevel degenerative changes are present. IMPRESSION: No acute cervical spine fracture or subluxation. ACT 112: Negative or not required by law. Electronically signed by: Ravi Singletary M.D. 04/27/2022 1:13 AM
--- NOTE | 2022-04-27 01:27 | CT Scan Report ---
CT OF THE CHEST WITHOUT IV CONTRAST CLINICAL HISTORY: syncope, injury COMPARISON STUDY: Chest CT September 18, 2016. TECHNIQUE: Axial images of the chest were obtained without IV contrast. Images were reviewed in the axial, sagittal, and coronal planes. IV contrast was not administered for this examination. Automat ed exposure control was utilized for the study. A dose lowering technique was utilized adhering to t he principles of ALARA. FINDINGS: Thoracic aorta is suboptimally assessed on this unenhanced exam but there is no mediastina l hematoma. Mild cardiomegaly is noted. There is no pericardial effusion. No pneumothorax, pleural ef fusion or pulmonary contusion is present. No acute rib fractures are noted. Multiple old bilateral ri b fractures are noted. Several right-sided rib fractures are incompletely healed. There is a mild age indeterminate compression fracture of the superior endplate of T3. This is new since chest CT of Sep. The abdomen and pelvis CT will be reported separately. IMPRESSION: 1. Mild compression fracture of the superior endplate of T3. This is age indeterminate but new since chest CT of September 18, 2016. 2. Numerous old bilateral rib fractures. No acute rib fractures. 3. No pneumothorax. 4. No mediastinal hematoma. ACT 112: Negative or not required by law. Electronically signed by: Ravi Singletary M.D. 04/27/2022 1:25 AM
--- NOTE | 2022-04-27 01:29 | CT Scan Report ---
CT OF THE THORACIC SPINE CLINICAL HISTORY: syncope, injury COMPARISON STUDY: Chest CT September 18, 2016. TECHNIQUE: Helical axial images of the thoracic spine were obtained. Sagittal and coronal reconstru ctions were viewed. Automated exposure control was utilized for the study. A dose lowering techniqu e was utilized adhering to the principles of ALARA. FINDINGS: Alignment of the thoracic spine is anatomic. There is a mild compression fracture of the taylor perior endplate of T3. There is no retropulsion. This is new since CT of September 18, 2016. No additional thoracic spine fractures are present. Moderate multilevel osteophytosis within the thoracic spine is noted. Facet joints are intact. Old bilateral rib fractures are noted. IMPRESSION: Mild compression fracture of the superior endplate of T3. This is age indeterminate but n ew since chest CT of September 18, 2016. ACT 112: Negative or not required by law. Electronically signed by: Ravi Singletary M.D. 04/27/2022 1:27 AM
[2022-04-27] MEDS ORDERED: MAGNESIUM SULFATE / D5W 1 GM/100 ML BAG IV STA (01:33)
--- NOTE | 2022-04-27 01:35 | CT Scan Report ---
CT OF THE ABDOMEN AND PELVIS WITHOUT CONTRAST CLINICAL HISTORY: syncope, injury COMPARISON STUDY: No previous studies for comparison. TECHNIQUE: Axial images of the abdomen and pelvis were obtained without IV contrast. Images were revi ewed in the axial, sagittal, and coronal planes. Automated exposure control was utilized for the blessing dy. A dose lowering technique was utilized adhering to the principles of ALARA. FINDINGS: No hemoperitoneum or pneumoperitoneum is present. Evaluation of the solid abdominal viscera is suboptimal on this unenhanced exam. However, there is no evidence for traumatic injury to the matilde er, spleen, adrenal glands, kidneys or pancreas. There is no biliary ductal dilatation status post ch olecystectomy. There is no evidence for a bowel obstruction. No free fluid. Appendix is unremarkable. Colonic diverticulosis is noted without evidence for acute diverticulitis. No acute lumbar spine, pe lvic or hip fractures identified. IMPRESSION: No acute traumatic findings within the abdomen or pelvis on unenhanced exam. ACT 112: Negative or not required by law. Electronically signed by: Ravi Singletary M.D. 04/27/2022 1:33 AM
--- NOTE | 2022-04-27 01:39 | CT Scan Report ---
CT OF THE LUMBAR SPINE CLINICAL HISTORY: syncope, injury COMPARISON STUDY: No previous studies for comparison. TECHNIQUE: Helical axial images of the lumbar spine were obtained. Sagittal and coronal reconstruct ions were viewed. Automated exposure control was utilized for the study. A dose lowering technique was utilized adhering to the principles of ALARA. FINDINGS: There is minimal leftward curvature of the lumbar spine. There is no acute lumbar spine fra cture. Vertebral body heights are maintained. There are no suspicious osseous lesions. Severe disc sp cherelle narrowing is noted with osteophytosis at L3-L4. There is severe multilevel facet arthrosis. Centr al canal and neural foramen are suboptimally assessed given CT technique. IMPRESSION: No acute lumbar spine fracture or subluxation. ACT 112: Negative or not required by law. Electronically signed by: Ravi Singletary M.D. 04/27/2022 1:37 AM
[2022-04-27] MEDS ORDERED: POTASSIUM CHLORIDE CRTAB 20 MEQ TABCR PO STA (02:53)
[2022-04-27] MEDS ORDERED: LOSARTAN POTASSIUM 50 MG TAB PO STA (02:54)
[2022-04-27] MEDS ORDERED: LACTATED RINGER'S 1,000 ML IV STA (03:15)
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
[2022-04-27] MEDS: MAGNESIUM SULFATE / D5W 1 GM/100 ML BAG IV SCH ×2 (03:48→05:51)
[2022-04-27] MEDS ORDERED: DOXYCYCLINE HYCLATE 100 MG CAP PO STA ×2 (04:21→04:22)
[2022-04-27] MEDS ORDERED: LIDOCAINE 5% 1 PATCH TD STA (04:21)
[2022-04-27] MEDS ORDERED: ACETAMINOPHEN 325 MG TAB PO PRN (04:53)
[2022-04-27] MEDS ORDERED: GLUCOSE 40% GEL 15 GM TUBE PO PRN (05:43)
[2022-04-27] MEDS ORDERED: DOCUSATE SODIUM 100 MG CAP PO PRN (05:43)
[2022-04-27] MEDS ORDERED: MECLIZINE HCL 25 MG TAB PO PRN (05:43)
[2022-04-27] MEDS ORDERED: GLUCAGON FOR INJ 1 MG VIAL SQ PRN (05:43)
[2022-04-27] MEDS ORDERED: traMADol HCL 50 MG TABLET PO PRN (05:43)
[2022-04-27] MEDS ORDERED: DEXTROSE 50% 50 ML SYRINGE IV PRN (05:43)
[2022-04-27] MEDS ORDERED: GLUCOSE 10 TAB/TUBE PO PRN (05:43)
[2022-04-27] MEDS ORDERED: DICLOFENAC SOD 1% GEL 100 GM TUBE EXT PRN (05:43)
[2022-04-27] MEDS ORDERED: CARBOHYDRATES FOR HYPOGLYCEMIA PO PRN (05:43)
[2022-04-27] MEDS ORDERED: PROMETHAZINE HCL 12.5 MG in SODIUM CHLORIDE 0.9% 50 ML IV PRN (05:43)
[2022-04-27] MEDS ORDERED: IBUPROFEN 200 MG TAB PO PRN (05:43)
[2022-04-27] MEDS ORDERED: MELATONIN 3 MG TAB PO PRN (06:04)
[2022-04-27] MEDS: INSULIN ASPART PER UNIT SC SCH ×4 (06:12→21:24)
[2022-04-27] MEDS: LEVOTHYROXINE SODIUM 25 MCG TABLET PO SCH (06:16)
[2022-04-27 06:55] LABS: Estimated Average Glucose 166 mg/dl; Hemoglobin A1C 7.4 % (4.5-5.6)
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
[2022-04-27 07:42] LABS: Appearance Urine Clear (Clear); Bacteria Urine Automated Negative (Negative); Bilirubin Urine Negative (Negative); Blood Urine Negative (Negative); Cast Urine Automated 0 /lpf (0-5); Color Urine Yellow; Glucose Urine UA Negative (Negative); Ketones Urine Negative (Negative); Leukocyte Esterase Urine Trace (Negative); Nitrite Urine Negative (Negative); Protein Urine Negative (Negative); RBC Urine Automated 0-4 /hpf (0-4); Specific Gravity Urine 1.008 (1.000-1.030); Urobilinogen Urine Negative (Negative); pH Urine 6.5 (4.5-7.5)
[2022-04-27] MEDS: LANTUS PER UNIT CHARGE SQ SCH (09:02)
--- NOTE | 2022-04-27 09:14 | Electrocardiogram Report ---
Test Reason : Blood Pressure : / mmHG Vent. Rate : 077 BPM Atrial Rate : 077 BPM P-R Int : 168 ms QRS Dur : 084 ms QT Int : 410 ms P-R-T Axes : 042 -44 046 degrees QTc Int : 463 ms Poor data quality, interpretation may be adversely affected Normal sinus rhythm Left axis deviation Poor R wave progression, consider anterior MD vs. lead placement vs. LVH Diffuse Nonspecific T wave abnormality Abnormal ECG When compared with ECG of 18-SEP-2016 06:50, T wave inversion less evident in Anterolateral leads Confirmed by Jose Wynn ([id number]) on 04/27/2022 9:14:10 AM Referred By: REFERRED SELF Confirmed By:Jose Wynn
[2022-04-27 10:28] LABS: BUN Creatinine Ratio 23.4 (10-20); Calcium 8.9 mg/dl (8.5-10.1); Est GFR (African American) 117.6 ml/min; Est GFR (Non-African American) 101.5 ml/min; Magnesium 2.1 mg/dl (1.7-2.4); Potassium 3.8 mmol/L (3.5-5.1)
[2022-04-27 10:42] LABS: Hematocrit (blood only) 32.8 % (34.1-44.9); Hemoglobin 11.6 g/dl (12.0-16.0)
[2022-04-27] MEDS: CYANOCOBALAMIN (B-12) 500 MCG TABLET PO SCH (10:53)
[2022-04-27] MEDS: PANTOprazole 40 MG TAB PO SCH (10:53)
[2022-04-27] MEDS: LORATADINE 10 MG TAB PO SCH (10:54)
--- NOTE | 2022-04-27 10:54 | Consultation ---
Date of Consultation April 27, 2022 Assessment & Plan (1) Compression fracture of T3 vertebra: Dr. Cabrera has reviewed imaging. She has most likely an acute T3 compression fracture status post syncopal episode/fall yesterday. She is tender in this region. Treatment is conservative. She can discontinue use of cervical collar. There is no real bracing due to the location of this fracture. Ambulate ad jordan. No lifting greater than 5 pounds. No pushing or pulling with upper extremities. She can follow-up in our office in 2 weeks. Due to the location of where she is from she can certainly follow-up in our [place] office.[phone] Will sign off. History of Present Illness Reason for Consultation: Thoracic compression fracture Attending Physician: Stuart Franklin MD History of Present Illness Is a pleasant 66-year-old female who had a syncopal episode last evening. Ambulance was called. Family was present. She did not attempt to get up on her own. She does have pain in the cervical thoracic region with burning into the upper shoulders and scapular region. She is in a cervical collar She has known cervical issues/degeneration. She has no radicular complaints. Allergies Allergy/AdvReac Type Severity Reaction Status Date / Time codeine Allergy Unknown Verified 04/27/22 01:42 lisinopril Allergy Unknown Verified 04/27/22 01:42 indomethacin AdvReac Intermediate "MAKES ME Verified 04/27/22 01:41 HIGH" aspirin AdvReac Unknown STOMACH Verified 04/27/22 01:41 UPSET/SENSITIVITY Fish Containing Products AdvReac Unknown Gastrointestinal Verified 04/27/22 03:14 Upset Penicillins AdvReac Unknown STOMACH Verified 04/27/22 01:41 UPSET/SENSITIVITY acetaminophen [From Percocet] AdvReac Unknown Verified 04/27/22 01:42 oxycodone AdvReac Unknown Verified 04/27/22 01:42 Home Medications Medication Instructions Recorded Confirmed Type albuterol sulfate 90 mcg/actuation 1 puff inhalation QID PRN 04/27/22 04/27/22 History aerosol inhaler Shortness Of Breath Or Wheezing atorvastatin 40 mg tablet 40 mg PO HS 04/27/22 04/27/22 History cephalexin 500 mg capsule 500 mg PO BID 04/27/22 04/27/22 History cholecalciferol (vitamin D3) 50 50 mcg PO QAM 04/27/22 04/27/22 History mcg (2,000 unit) tablet (Vitamin D3) clopidogrel 75 mg tablet 75 mg PO QAM 04/27/22 04/27/22 History cyanocobalamin (vitamin B-12) 250 250 mcg PO QAM 04/27/22 04/27/22 History mcg tablet (Vitamin B-12) diclofenac sodium 1 % topical gel 1 g topical QID PRN Pain 04/27/22 04/27/22 History docusate sodium 100 mg capsule 100 mg PO BID PRN Constipation 04/27/22 04/27/22 History dulaglutide 3 mg/0.5 mL 3 mg subcut WK 04/27/22 04/27/22 History subcutaneous pen injector fluoxetine 40 mg capsule 40 mg PO QAM 04/27/22 04/27/22 History fluticasone 500 mcg-salmeterol 50 1 inh inhalation Q12H PRN as 04/27/22 04/27/22 History mcg/dose blistr powdr for directed inhalation (Advair Diskus) hydrochlorothiazide 25 mg tablet 25 mg PO QAM 04/27/22 04/27/22 History ibuprofen 200 mg tablet (Motrin IB) 400 mg PO Q6 PRN Pain 04/27/22 04/27/22 History levothyroxine 25 mcg tablet 25 mcg PO DAILYBB 04/27/22 04/27/22 History loratadine 10 mg tablet 10 mg PO QAM 04/27/22 04/27/22 History losartan 50 mg tablet 50 mg PO QAM 04/27/22 04/27/22 History meclizine 25 mg tablet 25 mg PO TID PRN Vertigo 04/27/22 04/27/22 History melatonin 10 mg tablet 20 mg PO HS 04/27/22 04/27/22 History metformin 1,000 mg tablet 1,000 mg PO BID 04/27/22 04/27/22 History metoprolol succinate 25 mg 25 mg PO QAM 04/27/22 04/27/22 History tablet,extended release 24 hr montelukast 10 mg tablet 10 mg PO HS 04/27/22 04/27/22 History mupirocin 2 % topical ointment 1 applic topical UD 04/27/22 04/27/22 History nitroglycerin 0.4 mg sublingual 0.4 mg sublingual UD PRN Chest Pain 04/27/22 04/27/22 History tablet (Nitrostat) pantoprazole 40 mg tablet,delayed 40 mg PO QAM 04/27/22 04/27/22 History release Patient History Medical History Diabetes mellitus GERD (gastroesophageal reflux disease) HX: breast cancer Hypertension Hypothyroidism Surgical History History of carpal tunnel surgery of left wrist History of hysterectomy History of right knee surgery Hx of cholecystectomy S/P SACHI-BSO Status post left breast lumpectomy Social History Smoking Status: Never smoker Hx Alcohol Use: No Hx Substance Use: No Preferred Language: Bulgarian Communication Ability: Effective Box Car Loader Required: No Beliefs That Will Affect Care: Adventism Adventism Beliefs: synagogue Current Living Situation: Family Other Information That Helps Us Care for You: No Feels Safe at Home: Yes Safety Concerns: Feels Safe At This Time Assistive Devices: Hearing Aid - Left and Hearing Aid - Right Review of Systems Review of Systems: All systems reviewed & are unremarkable except as noted in HPI & below Physical Exam Physical Exam: She is seen in conjunction with her daughter She is lying supine and flat [place] J collar intact No acute distress Alert and orient x3 Motor testing is 5/5 bilateral finger intrinsics, finger sensors, wrist flexors, biceps, triceps, deltoid She is tender to palpation both midline cervical thoracic region No palpable step-offs in this area. No evidence of upper motor neuron signs. Constitutional: average body habitus Eyes: normal visual conteh by confrontation ENMT: external ear and nose normal, oropharynx normal Neck: trachea midline, no thyromegaly Respiratory: normal respiratory effort Cardiovascular: Extremities: normal capillary refill Gastrointestinal (Abdomen): Inspection/Auscultation: abdomen normal to inspection Musculoskeletal: Spine: + pain with cervical ROM, + cervical spinal tenderness, + cervical muscular tenderness and + cervical collar present E xtremities: extremities normal to inspection and strength 5/5 throughout Skin: normal turgor Neurologic: normal touch/pain/proprioception and moves all extremities Psychiatric: A+Ox3, euthymic affect Eye Contact: good eye contact Results & Data ([facility]) Vital Signs (Past 12 Hours) Vital Signs Temp Pulse Pulse Resp BP BP Pulse Ox 04/27/22 10:02 75 04/27/22 08:05 36.6 C 75 20 127/78 95 04/27/22 06:13 36.6 C 74 18 147/87 H 95 04/27/22 02:59 87 16 144/87 H 100 04/27/22 00:39 77 16 100 04/27/22 00:17 36.5 C 88 16 162/94 H 99 O2 Del Method 04/27/22 10:02 04/27/22 08:05 Room Air 04/27/22 06:13 Room Air 04/27/22 02:59 Room Air 04/27/22 00:39 Room Air 04/27/22 00:17 Room Air Diagnostic Findings [place] [phone] CT Scan Report Patient:SPEEDY LUI Admit Date:04/27/22 MR#:[id number] Address1:[address] [place] [address] Acct ID:[id number] Address2: Date:1955 [facility] Zip:[place] [address] Age:66 Location:ED Sex:F Room/Bed: Att Phy: Diagnosis:VASO-VAGAL EPISODE/+LOC Talia Phy:PCP,NO Service Date:04/27/22 Fam Phy: Interpreting Phy:Ravi Singletary MDAdmit Phy: Ordering Phy:Elroy Sierra PA-C cc: ~ CT OF THE THORACIC SPINE CLINICAL HISTORY: syncope, injury COMPARISON STUDY: Chest CT September 18, 2016. TECHNIQUE: Helical axial images of the thoracic spine were obtained. Sagittal and coronal reconstructions were viewed. Automated exposure control was utilized for the study. A dose lowering technique was utilized adhering to the principles of ALARA. FINDINGS: Alignment of the thoracic spine is anatomic. There is a mild compression fracture of the superior endplate of T3. There is no retropulsion. This is new since CT of September 18, 2016. No additional thoracic spine fractures are present. Moderate multilevel osteophytosis within the thoracic spine is noted. Facet joints are intact. Old bilateral rib fractures are noted. IMPRESSION: Mild compression fracture of the superior endplate of T3. This is age indeterminate but new since chest CT of September 18, 2016. ACT 112: Negative or not required by law. Electronically signed by: Ravi Singletary M.D. 04/27/2022 1:27 AM Dictated:04/27/22124 Transcribed: 04/27/22124
--- NOTE | 2022-04-27 15:44 | Hospitalist Progress Note ---
Date of Service April 27, 2022 Assessment & Plan (1) Syncope and collapse: Plan: Syncope Likely Vasovagal Syncope H/O recurrent vasovagal syncope -CT head:No acute intracranial findings. No acute calvarial fracture. -CT Neck:No acute cervical spine fracture or subluxation. Counselled to avoid Triggers Monitor on Tele Compression fracture of T3 vertebra Secondary to Fall/Syncope Chronic bilateral rib fractures --Thoracic Spine CT:Mild compression fracture of the superior endplate of T3. This is age indeterminate but new since chest CT of September 18, 2016. --CT Chest:Mild compression fracture of the superior endplate of T3. This is age indeterminate but new since chest CT of September 18, 2016. Numerous old bilateral rib fractures. No acute rib fractures. No pneumothorax. No mediastinal hematoma. -- Fall precautions --PT OT Appreciate orthopedics input Burn wound right hand Continue wound care Empirically on doxycycline Chronic diastolic heart failure No signs of decompensation Nonocclusive CAD Continue home medications HTN Continue losartan, metoprolol Also on HCTZ Hyperlipidemia on statin DM II Hold PO meds HbA1c 7.4 Continue insulin while hospitalized H/O Pulmonary fibrosis PASCUAL on CPAP H/O Asthma as per records Continue home inhalers Hypothyroidism On levothyroxine Left breast cancer S/P surgery/radiation/tamoxifen Rx Past tobacco abuse Currently in remission Hypokalemia Hypomagnesemia Likely due to HCTZ Replete electrolytes as needed DVT Px: SCDs for now Code Status Full code Admission and Anticipated Discharge Date Admission Date: April 27, 2022 Subjective Patient is seen and examined at bedside States having minimal back pain Denies any pain of the right hand burn region No other complaints Family at bedside Denies any chest pain, dyspnea, dizziness, nausea, abdominal pain Review of Systems Review of Systems: All systems reviewed & are unremarkable except as noted in Subjective Physical Exam Physical Exam: Physical Exam: Vitals signs as noted above General Appearance:Moderately built and nourished, no apparent distress Head: normocephalic, Atraumatic Eyes: normal inspection, EOMI Neck: supple, Trachea midline Respiratory/Chest: Normal breath sounds, CTA, No accessory muscle use Cardiovascular: S1, S2, No murmur Abdomen/GI:Soft, Non tender, Bowel sounds present Back: Thoracic spine Tender Extremities/Musculoskeletal:normal inspection, no pedal edema, R hand burn/swelling in dressing Neurologic/Psych:AAOX3, grossly no focal neurological deficits Skin: normal color, warm Results & Data Results & Data ([facility]) Vital Signs (Past 12 Hours) Vital Signs Temp Pulse Pulse Resp BP Pulse Ox O2 Del Method 04/27/22 14:10 79 04/27/22 11:40 36.6 C 73 19 137/84 98 Room Air 04/27/22 10:02 75 04/27/22 08:05 36.6 C 75 20 127/78 95 Room Air 04/27/22 06:13 36.6 C 74 18 147/87 H 95 Room Air Laboratory Results Short CBC 04/27/22 04/27/22 Range/Units 00:30 09:49 WBC 9.79 (4.8-10.8) K/ul Hgb 13.0 11.6 L (12.0-16.0) g/dl Hct 37.2 32.8 L (34.1-44.9) % Plt Count 443 H (130-400) K/uL BMP 04/27/22 04/27/22 00:30 09:49 Sodium 132 L 136 Potassium 3.4 L 3.8 Chloride 91 L 99 Carbon Dioxide 25 33 H BUN 11 11 Creatinine 0.55 L 0.47 L Glucose 149 H 105 H Calcium 9.5 8.9 Liver Function 04/27/22 Range/Units 00:30 Total Bilirubin 0.5 (0.2-1.0) mg/dl AST 17 (13-39) U/L ALT 17 (7-52) U/L Alkaline Phosphatase 78 (34-104) U/L Albumin 4.3 (3.4-5.0) gm/dl Urine 04/27/22 Range/Units 07:19 Urine Color Yellow Urine Appearance Clear (Clear) Urine pH 6.5 (4.5-7.5) Ur Specific [place] 1.008 (1.000-1.030) Urine Protein Negative (Negative) Urine Glucose (UA) Negative (Negative)
[2022-04-27] MEDS ORDERED: ATORVASTATIN 40 MG TAB PO SCH (21:00)
[2022-04-27] MEDS ORDERED: MONTELUKAST SODIUM 10 MG TABLET PO SCH (21:00)
[2022-04-27] MEDS: DOXYCYCLINE HYCLATE 100 MG CAP PO SCH (21:26)
[2022-04-28] MEDS: LEVOTHYROXINE SODIUM 25 MCG TABLET PO SCH (06:25)
[2022-04-28 06:55] LABS: Hematocrit (blood only) 33.5 % (34.1-44.9); Hemoglobin 11.4 g/dl (12.0-16.0); Mean Corpuscular Hemoglobin 27.1 pg (25.0-34.0); Mean Corpuscular Volume 79.8 fL (80.0-100.0); Mean Platelet Volume 8.5 fL (9.4-12.3); Platelet Count 384 K/uL (130-400); RDW Standard Deviation 43.6 fL (36.4-46.3); White Blood Count 6.26 K/ul (4.8-10.8)
[2022-04-28 07:22] LABS: Calcium 8.7 mg/dl (8.5-10.1); Creatinine Clr Calc Pharmacy 112.9 ml/min; Est GFR (African American) 115.3 ml/min; Est GFR (Non-African American) 99.4 ml/min; Magnesium 1.7 mg/dl (1.7-2.4); Potassium 3.9 mmol/L (3.5-5.1)
[2022-04-28] MEDS: DOXYCYCLINE HYCLATE 100 MG CAP PO SCH (08:17)
[2022-04-28] MEDS: CYANOCOBALAMIN (B-12) 500 MCG TABLET PO SCH (08:17)
[2022-04-28] MEDS: LORATADINE 10 MG TAB PO SCH (08:18)
[2022-04-28] MEDS: PANTOprazole 40 MG TAB PO SCH (08:18)
[2022-04-28] MEDS: LANTUS PER UNIT CHARGE SQ SCH (08:27)
[2022-04-28] MEDS: INSULIN ASPART PER UNIT SC SCH ×2 (08:28→12:08)
[2022-04-28] MEDS ORDERED: CLOPIDOGREL BISULFATE 75 MG TAB PO SCH (09:00)
[2022-04-28] MEDS ORDERED: LIDOCAINE 5% 1 PATCH TD SCH (09:00)
[2022-04-28] MEDS ORDERED: LOSARTAN POTASSIUM 50 MG TAB PO SCH (09:00)
[2022-04-28] MEDS ORDERED: hydroCHLOROthiazide 25 MG TAB PO SCH (09:00)
[2022-04-28] MEDS ORDERED: METOPROLOL SUCC 25MG EXT REL TAB PO SCH (09:00)
[2022-04-28] MEDS ORDERED: FLUoxetine HCL 20 MG CAP PO SCH (09:00)
[2022-04-28] MEDS ORDERED: FLUTICASONE/VILANTEROL 100/25MCG 14 PUFFS/INHALER INH SCH (09:00)
--- NOTE | 2022-04-28 12:31 | Hospitalist Progress Note ---
Date of Service April 28, 2022 Assessment & Plan (1) Syncope and collapse: Plan: Syncope Likely Vasovagal Syncope H/O recurrent vasovagal syncope -CT head:No acute intracranial findings. No acute calvarial fracture. -CT Neck:No acute cervical spine fracture or subluxation. Counselled to avoid Triggers Monitor on Tele--No issues Compression fracture of T3 vertebra Secondary to Fall/Syncope Chronic bilateral rib fractures --Thoracic Spine CT:Mild compression fracture of the superior endplate of T3. This is age indeterminate but new since chest CT of September 18, 2016. --CT Chest:Mild compression fracture of the superior endplate of T3. This is age indeterminate but new since chest CT of September 18, 2016. Numerous old bilateral rib fractures. No acute rib fractures. No pneumothorax. No mediastinal hematoma. -- Fall precautions --PT OT eval Appreciate orthopedics input No lifting greater than 5 pounds. No pushing or pulling with upper extremities. Needs follow-up with orthopedics upon discharge Burn wound right hand Continue wound care Empirically on doxycycline Needs follow-up with wound clinic upon discharge Chronic diastolic heart failure No signs of decompensation Nonocclusive CAD Continue home medications HTN Continue losartan, metoprolol Also on HCTZ Hyperlipidemia on statin DM II Hold PO meds HbA1c 7.4 Continue insulin while hospitalized H/O Pulmonary fibrosis PASCUAL on CPAP H/O Asthma as per records Continue home inhalers Hypothyroidism On levothyroxine Left breast cancer S/P surgery/radiation/tamoxifen Rx Past tobacco abuse Currently in remission Hypokalemia Hypomagnesemia Likely due to HCTZ Replete electrolytes as needed DVT Px: SCDs for now Code Status Full code Admission and Anticipated Discharge Date Admission Date: April 27, 2022 Subjective Patient is seen and examined at bedside States feeling well today Back pain is much improved Denies any pain of the right hand burn region No other complaints Denies any chest pain, dyspnea, dizziness, nausea, abdominal pain Plan to discharge home today Review of Systems Review of Systems: All systems reviewed & are unremarkable except as noted in Subjective Physical Exam Physical Exam: Physical Exam: Vitals signs as noted above General Appearance:Moderately built and nourished, no apparent distress Head: normocephalic, Atraumatic Eyes: normal inspection, EOMI Neck: supple, Trachea midline Respiratory/Chest: Normal breath sounds, CTA, No accessory muscle use Cardiovascular: S1, S2, No murmur Abdomen/GI:Soft, Non tender, Bowel sounds present Back: Thoracic spine Tender Extremities/Musculoskeletal:normal inspection, no pedal edema, R hand b urn/swelling in dressing Neurologic/Psych:AAOX3, grossly no focal neurological deficits Skin: normal color, warm Results & Data Results & Data ([facility]) Vital Signs (Past 12 Hours) Vital Signs Temp Pulse Pulse Pulse Resp BP BP 04/28/22 11:05 36.8 C 69 16 158/87 H 04/28/22 10:15 71 18 151/78 H 04/28/22 08:00 04/28/22 08:09 82 04/28/22 07:49 36.6 C 77 20 152/87 H 04/28/22 03:38 36.9 C 78 20 150/89 H Pulse Ox O2 Del Method 04/28/22 11:05 96 Room Air 04/28/22 10:15 96 Room Air 04/28/22 08:00 Room Air 04/28/22 08:09 04/28/22 07:49 96 Room Air 04/28/22 03:38 96 Room Air, CPAP Laboratory Results Short CBC 04/28/22 Range/Units 06:28 WBC 6.26 (4.8-10.8) K/ul Hgb 11.4 L (12.0-16.0) g/dl Hct 33.5 L (34.1-44.9) % Plt Count 384 (130-400) K/uL BMP 04/28/22 06:28 Sodium 135 L Potassium 3.9 Chloride 100 Carbon Dioxide 29 BUN 11 Creatinine 0.50 L Glucose 141 H Calcium 8.7
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
== END 2022-04-28 13:44 | disposition home or self-care (01) | DRG 312 ==
LOC: ED 00:16 → 2S 03:48 → 2N 14:06